=== PATIENT | female | born 1955 | race Caucasian/White ===

== ENCOUNTER → 2016-05-12 | Outpatient (CLI) | payer BC, MEDICARE ==
--- NOTE | 2016-05-13 08:51 | MM ---
Reason for exam: screening (asymptomatic). Last mammogram was performed 1 year and 11 months ago. History: Patient is postmenopausal, history of other cancer, and had first child at age 31. Family history of breast cancer in paternal grandmother. Took hormonal contraceptives for 9 years. Took estrogen for 6 months. Physical Findings: A clinical breast exam by your physician is recommended on an annual basis and results should be correlated with mammographic findings. MG 3D Screening Mammo W/Cad Bilateral CC and MLO view(s) were taken. Prior study comparison: June 02, 2014, bilateral MG screening mammo w CAD. February 16, 2012, CAD bilateral diagnostic mammogram. The breast tissue is extremely dense which could obscure a lesion on mammography. Finding: There are typically benign calcifications in the right breast. There is a chronic nodularity in the left breast. No significant changes in finding since June 02, 2014 and February 16, 2012. ASSESSMENT: Benign, BI-RAD 2 RECOMMENDATION: Routine screening mammogram of both breasts in 1 year.
== END | disposition home or self-care (01) ==
LOC: RADMAMWWP 16:42
PROVIDERS: ATTEND Family Medicine
DX: Z12.31 Encounter for screening mammogram for malignant neoplasm of breast (principal)
CPT/HCPCS: 77063; G0202

== ENCOUNTER → 2017-08-13 | Outpatient (CLI) | payer MEDICARE ==
--- NOTE | 2017-08-17 10:50 | MM ---
Reason for exam: screening (asymptomatic). Last mammogram was performed 1 year and 3 months ago. History: Patient is postmenopausal, history of other cancer, and had first child at age 31. Family history of breast cancer in paternal grandmother. Took hormonal contraceptives for 9 years. Took estrogen for 6 months. Physical Findings: A clinical breast exam by your physician is recommended on an annual basis and results should be correlated with mammographic findings. MG 3D Screening Mammo W/Cad Bilateral CC and MLO view(s) were taken. Prior study comparison: May 12, 2016, bilateral MG 3d screening mammo w/cad. June 02, 2014, bilateral MG screening mammo w CAD. The breast tissue is heterogeneously dense. This may lower the sensitivity of mammography. Stable benign calcifications. There is chronic nodularity bilaterally. There is no dominant lesion. No significant changes when compared with prior studies. ASSESSMENT: Benign, BI-RAD 2 RECOMMENDATION: Routine screening mammogram of both breasts in 1 year.
== END | disposition home or self-care (01) ==
LOC: RADMAMWWP 16:59
PROVIDERS: ATTEND Family Medicine
DX: Z12.31 Encounter for screening mammogram for malignant neoplasm of breast (principal)
CPT/HCPCS: 77063; 77067

== ENCOUNTER → 2019-02-01 | Outpatient (CLI) | payer MEDICARE ==
--- NOTE | 2019-02-03 09:48 | MM ---
Reason for exam: screening (asymptomatic). Last mammogram was performed 1 year and 6 months ago. History: Patient is postmenopausal, history of other cancer, and had first child at age 31. Family history of breast cancer in paternal grandmother. Took hormonal contraceptives for 9 years. Took estrogen for 6 months. Physical Findings: A clinical breast exam by your physician is recommended on an annual basis and results should be correlated with mammographic findings. MG 3D Screening Mammo W/Cad Bilateral CC and MLO view(s) were taken. Prior study comparison: August 13, 2017, bilateral MG 3d screening mammo w/cad. May 12, 2016, bilateral MG 3d screening mammo w/cad. The breast tissue is extremely dense which could obscure a lesion on mammography. Stable benign calcifications. There is no discrete abnormality. No significant changes when compared with prior studies. ASSESSMENT: Benign, BI-RAD 2 RECOMMENDATION: Routine screening mammogram of both breasts in 1 year.
== END | disposition home or self-care (01) ==
LOC: RADMAMWWP 15:23
PROVIDERS: ATTEND Family Medicine
DX: Z12.31 Encounter for screening mammogram for malignant neoplasm of breast (principal)
CPT/HCPCS: 77063; 77067

== ENCOUNTER → 2020-11-01 | Outpatient (CLI) | payer MEDICARE ==
--- NOTE | 2020-11-05 14:16 | MM ---
Reason for exam: screening (asymptomatic). Last mammogram was performed 1 year and 9 months ago. History: Patient is postmenopausal, history of other cancer, and had first child at age 31. Family history of breast cancer in paternal grandmother. Took hormonal contraceptives for 9 years. Took estrogen for 6 months. Physical Findings: A clinical breast exam by your physician is recommended on an annual basis and results should be correlated with mammographic findings. MG 3D Screening Mammo W/Cad Bilateral CC and MLO view(s) were taken. Prior study comparison: February 01, 2019, bilateral MG 3d screening mammo w/cad. August 13, 2017, bilateral MG 3d screening mammo w/cad. The breast tissue is heterogeneously dense. This may lower the sensitivity of mammography. No persisting abnormality on 3D images. No significant changes when compared with prior studies. ASSESSMENT: Benign, BI-RAD 2 RECOMMENDATION: Routine screening mammogram of both breasts in 1 year.
== END | disposition home or self-care (01) ==
LOC: RADMAMWWP 13:43
PROVIDERS: ATTEND Family Medicine
DX: Z12.31 Encounter for screening mammogram for malignant neoplasm of breast (principal); Z78.0 Asymptomatic menopausal state; Z85.9 Personal history of malignant neoplasm, unspecified; Z79.3 Long term (current) use of hormonal contraceptives; Z80.3 Family history of malignant neoplasm of breast
CPT/HCPCS: 77063; 77067

== ENCOUNTER 2021-02-27 03:21 | Emergency (ER) | payer MEDICARE ==
[2021-02-27 03:27] VITALS: RESP 20; TEMP 98.9
[2021-02-27] MEDS ORDERED: METOPROLOL TARTRATE 50 MG TAB PO STA (04:42)
[2021-02-27] MEDS ORDERED: MORPHINE SULFATE 4 MG/ML SYRINGE IV STA (04:43)
[2021-02-27] MEDS ORDERED: LORazepam 2 MG/ML INJ IV STA (04:43)
--- NOTE | 2021-02-27 04:57 | XR ---
EXAMINATION TYPE: XR chest 2V DATE OF EXAM: 02/27/2021 COMPARISON: NONE HISTORY: Chest pain TECHNIQUE: 2 views FINDINGS: Heart and mediastinum are normal. Lungs are clear. Diaphragm is normal. Bony thorax is inta ct. There are chest leads. IMPRESSION: Normal chest
[2021-02-27 04:59] LABS: Basophils # (A) 0.1 k/uL (0-0.2); Basophils % (A) 1 %; Eosinophils # (A) 0.4 k/uL (0-0.7); Eosinophils % (A) 4 %; HCT 45.6 % (34.0-46.0); HGB 15.4 gm/dL (11.4-16.0); Lymphocytes # (A) 2.7 k/uL (1.0-4.8); Lymphocytes % (A) 29 %; MCHC 33.8 g/dL (31.0-37.0); MCV 88.8 fL (80.0-100.0); Mean Platelet Volume 7.1; Monocytes # (A) 0.8 k/uL (0-1.0); Monocytes % (A) 9 %; Neutrophils # (A) 5.3 k/uL (1.3-7.7); Neutrophils % (A) 56 %; Platelet Count 470 k/uL (150-450); RBC 5.14 m/uL (3.80-5.40); RDW 13.5 % (11.5-15.5); WBC 9.4 k/uL (3.8-10.6)
[2021-02-27 05:14] LABS: Albumin 4.5 g/dL (3.5-5.0); Calcium 10.7 mg/dL (8.4-10.2); Magnesium 1.7 mg/dL (1.6-2.3); Potassium 4.1 mmol/L (3.5-5.1); Total Bilirubin 0.4 mg/dL (0.2-1.3); Total Protein 7.3 g/dL (6.3-8.2)
[2021-02-27 05:24] LABS: INR 0.9 (<1.2)
--- NOTE | 2021-02-27 06:07 | ED ---
Chest Pain HPI - General Chief Complaint: Chest Pain Stated Complaint: Chest Pain Time Seen by Provider: 02/27/21 04:13 Source: patient Mode of arrival: ambulatory Limitations: no limitations - Related Data Allergies Allergy/AdvReac Type Severity Reaction Status Date / Time No Known Allergies Allergy Verified 02/27/21 03:26 Review of Systems ROS Statement: Those systems with pertinent positive or pertinent negative responses have been documented in the HPI. ROS Other: All systems not noted in ROS Statement are negative. EKG Findings - EKG Comments: EKG Findings:: Possible old lateral infarct. Possible old inferior infarct. There is no previous ECG for comparison. - EKG Results: EKG: interpreted by JOSEE, sinus rhythm (Rate 92 bpm) - Blocks, [place], Hypertrophy, ST Abn: Repolarization changes or abnormalities: nonspecific abnormality, ST segment, and/or T wave Past Medical History Past Medical History: Hyperlipidemia, Hypertension History of Any Multi-Drug Resistant Organisms: None Reported Past Surgical History: Appendectomy, Section, Tubal Ligation Past Psychological History: No Psychological Hx Reported Smoking Status: Never smoker Past Alcohol Use History: Occasional Past Drug Use History: None Reported General Exam Limitations: no limitations Course Vital Signs 02/27/21 02/27/21 02/27/21 03:23 04:50 06:15 Temperature 98.9 F Pulse Rate 101 H 90 72 Respiratory 20 20 20 Rate Blood Pressure 160/105 151/92 129/96 O2 Sat by Pulse 99 99 95 Oximetry Disposition Clinical Impression: Chest pain Disposition: HOME SELF-CARE Condition: Good Instructions (If sedation given, give patient instructions): Chest Pain (ED) Is patient prescribed a controlled substance at d/c from ED?: No Referrals: Darlyn Horowitz DO [Primary Care Provider] - 1-2 days
[2021-02-27 06:16] VITALS: BP 129/96; PULSE 72
== END 2021-02-27 06:17 | disposition home or self-care (01) ==
LOC: EC 03:21
DX: R07.9 Chest pain, unspecified (principal); E78.5 Hyperlipidemia, unspecified; I10 Essential (primary) hypertension; Z72.89 Other problems related to lifestyle
CPT/HCPCS: 36415; 93005; 85379; 80053; 83735; 84484; 85025; 85610; 85730; 71046; 99285; 96374; 96375; J2060; J2270

== ENCOUNTER 2021-08-24 18:58 | Emergency (ER) | payer MEDICARE ==
[2021-08-24 19:15] VITALS: BP 150/66; PULSE 86; RESP 18; TEMP 98.1
[2021-08-24] MEDS ORDERED: CLOTRIMAZOLE 1% CREAM 30 GM TUBE TOPICAL STA (19:57)
--- NOTE | 2021-08-24 20:03 | ED ---
Skin/Abscess/FB HPI - General Chief complaint: Skin/Abscess/Foreign Body Stated complaint: L leg/abnormal spot Time Seen by Provider: 08/24/21 19:35 Source: patient Mode of arrival: ambulatory Limitations: no limitations - History of Present Illness Initial comments: 66-year-old female patient presents to the emergency department today for evaluation of skin lesion to the left anterior thigh. States the area started about a week ago was a small red spot and has grown in size. She denies any itching or pain to the area. Denies any discharge. Denies fever or chills. Denies vomiting or diarrhea. She is concerned because she had to rene a dog through a ditch that was filled with water. This started after that. - Related Data Previous Rx's Medication Instructions Recorded Clotrimazole Cream [Lotrimin Cream] 1 applic TOPICAL BID #15 gm 08/24/21 Allergies Allergy/AdvReac Type Severity Reaction Status Date / Time No Known Allergies Allergy Verified 02/27/21 03:26 Review of Systems ROS Statement: Those systems with pertinent positive or pertinent negative responses have been documented in the HPI. ROS Other: All systems not noted in ROS Statement are negative. Past Medical History Past Medical History: Hyperlipidemia, Hypertension History of Any Multi-Drug Resistant Organisms: None Reported Past Surgical History: Appendectomy, Section, Tubal Ligation Past Psychological History: No Psychological Hx Reported Smoking Status: Never smoker Past Alcohol Use History: Occasional Past Drug Use History: None Reported General Exam Limitations: no limitations General appearance: alert, in no apparent distress, other (This is a well- developed, well-nourished adult female in no acute distress) Respiratory exam: Present: normal lung sounds bilaterally. Absent: respiratory distress, wheezes, rales, rhonchi, stridor Cardiovascular Exam: Present: regular rate, normal rhythm, normal heart sounds. Absent: systolic murmur, diastolic murmur, rubs, gallop, clicks Extremities exam: Present: full ROM, normal capillary refill, other (There is patchy of scaly erythema to the left anterior thigh, there are tiny pustules surrounding.). Absent: normal inspection, tenderness, pedal edema, joint swelling, calf tenderness Course Vital Signs 08/24/21 19:13 Temperature 98.1 F Pulse Rate 86 Respiratory 18 Rate Blood Pressure 150/66 O2 Sat by Pulse 98 Oximetry Medical Decision Making - Medical Decision Making 66-year-old female patient presented for evaluation of skin lesions with left anterior thigh starting 1 week ago. Physical examination did reveal a patch of erythema with surrounding tiny pustules to the left anterior thigh. Approximately 3 cm x 3 cm. Surrounding skin is normal. Patient denies any itching or pain to the area. My attending Dr. Benitez was in to evaluate the lesion. We will treat for fungal infection with clotrimazole cream. She is instructed to follow-up with her primary care physician next week if symptoms are not improving. Return parameters were discussed in detail. She verbalizes understanding and agrees with this plan. My attending is Dr. Benitez. Disposition Clinical Impression: Fungal skin infection Disposition: HOME SELF-CARE Condition: Good Instructions (If sedation given, give patient instructions): Antifungals (On the skin) Additional Instructions: Follow-up with primary care physician if antifungal medication does not seem to be working. Return to the emergency department immediately if he develop any fever, chills, vomiting. Prescriptions: Clotrimazole Cream [Lotrimin Cream] 1 applic TOPICAL BID #15 gm Is patient prescribed a controlled substance at d/c from ED?: No Referrals: Darlyn Horowitz DO [Primary Care Provider] - 1-2 days Time of Disposition: 20:02
== END 2021-08-24 20:15 | disposition home or self-care (01) ==
LOC: EC 18:58
DX: L08.9 Local infection of the skin and subcutaneous tissue, unspecified (principal); I10 Essential (primary) hypertension; E78.5 Hyperlipidemia, unspecified

== ENCOUNTER → 2021-10-16 | Outpatient (CLI) | payer MEDICARE ==
--- NOTE | 2021-10-16 23:20 | CT ---
EXAMINATION TYPE: CT shoulder RT wo con CT DLP: 419.9 mGycm, Automated exposure control for dose reduction was used. DATE OF EXAM: 10/16/2021 7:19 PM COMPARISON: Chest radiograph 02/27/2021. CLINICAL INDICATION:Female, 66 years old with history of M25.511 RIGHT SHOULDER PAIN,M19.02 PRIMARY O STEOAR;, RIGHT SHOULDER PAIN,M19.02 PRIMARY OSTEOAR TECHNIQUE: Axial images were obtained of the right shoulder without the use of IV contrast. Addition al coronal and sagittal reformatted images and soft tissue and bone window were obtained for review. 3-D reconstruction was created on a separate workstation. FINDINGS: There is degeneration changes of the right shoulder with [id number] articulation, osteoph ytes of the glenoid and humerus and hypertrophy changes of the acromioclavicular joint. Underlying sc lerosis of the adjoining glenoid and humeral head are present. No evidence for acute fracture. No sig nificant muscle atrophy of the rotator cuff muscles. There is a moderate joint effusion present invol ving the glenohumeral joint with suspected hyperemia of the synovium. Visualized lungs are grossly unremarkable without evidence of focal consolidation, pneumothorax or p leural effusion. No suspicious pulmonary nodules. IMPRESSION: 1. 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 2. Moderate right glenohumeral joint effusion with suspected underlying synovitis.
== END | disposition home or self-care (01) ==
LOC: RADCTMAIN 18:31
PROVIDERS: ATTEND Orthopaedic Surgery Sports Medicine
DX: M19.011 Primary osteoarthritis, right shoulder (principal); M19.012 Primary osteoarthritis, left shoulder; M25.411 Effusion, right shoulder

== ENCOUNTER → 2022-01-03 | Outpatient (CLI) | payer MEDICARE ==
--- NOTE | 2022-01-06 10:21 | MM ---
Reason for Exam: Screening (asymptomatic). Last mammogram was performed 1 year(s) and 2 month(s) ago. Patient History: Menarche at age 14. First Full-Term at age 31. Late child-bearing (after 30). Postmenopausal. Estrogen for 6 months until age 53. Hormonal Contraceptives for 9 years until age 49. Paternal grandmother had breast cancer at or over age 50. Risk Values: Brooke 5 year model risk: 2.1%. NCI Lifetime model risk: 7.5%. Prior Study Comparison: 08/13/2017 Bilateral Screening Mammogram, [facility]. 02/01/2019 Bilateral Screening Mammogram, [facility]. 11/01/2020 Bilateral Screening Mammogram, [facility]. Tissue Density: The breast tissue is extremely dense which could obscure a lesion on mammography. Findings: Analyzed By CAD. In the outer lower aspect right craniocaudal view there are some linear range small rounded calcifications. In retrospect they appear to be present on prior examination. Recommend making dictation views for further characterization. Left breast appears stable. Overall Assessment: Incomplete: need additional imaging evaluation, BI-RAD 0 Management: Diagnostic Mammogram of the right breast. A negative mammogram report should not preclude additional follow up of suspicious palpable abnormalities. Patient should continue monthly self breast exam. A clinical breast exam by your physician is recommended on an annual basis and results should be correlated with mammographic findings. Electronically signed and approved by: Filemon Marrero D.O. Radiologis
== END | disposition home or self-care (01) ==
LOC: RADMAMWWP 16:22
PROVIDERS: ATTEND Family Medicine
DX: Z12.31 Encounter for screening mammogram for malignant neoplasm of breast (principal); Z78.0 Asymptomatic menopausal state; Z80.3 Family history of malignant neoplasm of breast
CPT/HCPCS: 77063; 77067

== ENCOUNTER → 2022-01-09 | Outpatient (CLI) | payer MEDICARE ==
--- NOTE | 2022-01-09 13:55 | MM ---
Reason for Exam: Additional evaluation requested from abnormal screening. Last screening mammogram was performed less than 1 month ago. Patient History: Menarche at age 14. First Full-Term at age 31. Late child-bearing (after 30). Postmenopausal. Estrogen for 6 months until age 53. Hormonal Contraceptives for 9 years until age 49. Paternal grandmother had breast cancer at or over age 50. Risk Values: Brooke 5 year model risk: 2.1%. NCI Lifetime model risk: 7.5%. Prior Study Comparison: 02/16/2012 Bilateral Diagnostic Mammogram, [facility]. 06/02/2014 Bilateral Screening Mammogram, [facility]. 08/13/2017 Bilateral Screening Mammogram, [facility]. 11/01/2020 Bilateral Screening Mammogram, [facility]. 01/03/2022 Bilateral MG 3D screening mammo w/cad, [facility]. Tissue Density: Right: The breast tissue is heterogeneously dense. This may lower the sensitivity of mammography. Findings: Analyzed By CAD. The questioned posterior lateral grouped microcalcifications are not clearly depicted on the magnification views. This may in part relate to accentuation due to C-view technique. Precautionary 6 month follow-up recommended. Overall Assessment: Probably benign, BI-RAD 3 Management: Diagnostic Mammogram of the right breast in 6 months. 1. Patient should continue monthly self breast exams. 2. A clinical breast exam by your physician is recommended on an annual basis. 3. This exam should not preclude additional follow-up of suspicious palpable abnormalities. Results were given to the patient verbally at the time of exam. Electronically signed and approved by: Juana Claudio M.D. Radiologist
== END | disposition home or self-care (01) ==
LOC: RADMAMWWP 13:00
PROVIDERS: ATTEND Family Medicine
DX: R92.8 Other abnormal and inconclusive findings on diagnostic imaging of breast (principal); Z78.0 Asymptomatic menopausal state; Z80.3 Family history of malignant neoplasm of breast
CPT/HCPCS: 77065; G0279; 77061

== ENCOUNTER → 2022-02-04 | Outpatient (CLI) | payer MEDICARE | END | disposition home or self-care (01) | LOC: LABPAT 12:05 | PROVIDERS: ATTEND Orthopaedic Surgery Sports Medicine | DX: Z01.812 Encounter for preprocedural laboratory examination (principal); Z01.818 Encounter for other preprocedural examination | CPT/HCPCS: 87070 ==

== ENCOUNTER 2022-02-06 05:45 | Day surgery (SDC) | payer MEDICARE ==
[2022-02-04 09:51] VITALS: BMI 30.7
[~2022-02-06 05:45] MED LIST: ACETAMINOPHEN TAB 500 MG TAB PO PRN; GABAPENTIN 300 MG CAP PO PRN; MELOXICAM 7.5 MG TAB PO PRN; ONDANSETRON 4 MG/2 ML VIAL IVP PRN; TRANEXAMIC ACID IN NACL,ISO-OS 1,000 MG in SALINE 1 100ML.BAG IVPB PRN
[2022-02-06] MEDS ORDERED: ONDANSETRON 4 MG/2 ML VIAL IVP ONE (05:50)
[2022-02-06] MEDS ORDERED: DEXAMETHASONE SOD PHOSPHATE 4 MG/ML 1 ML VIAL IV ONE (05:50)
[2022-02-06] MEDS ORDERED: LIDOCAINE 1% (10MG/ML) FOR IV START INTRADERMA PRN (05:50)
[2022-02-06] MEDS ORDERED: MIDAZOLAM 2 MG/2 ML VIAL IVP ONE (06:43)
[2022-02-06] MEDS: LACTATED RINGERS 1,000 ML IV SCH ×3 (06:53→17:03)
[2022-02-06] MEDS ORDERED: HYDROmorphone 0.5 MG/0.5 ML SYRINGE IVP PRN ×3 (07:00→09:26)
[2022-02-06] MEDS ORDERED: PROPOFOL 10 MG/ML 20 ML VIAL IV ONE (07:05)
[2022-02-06] MEDS ORDERED: NEOSTIGMINE 1 MG/ML 10 ML VIAL ONE (07:05)
[2022-02-06] MEDS ORDERED: MIDAZOLAM 2 MG/2 ML VIAL ONE (07:05)
[2022-02-06] MEDS ORDERED: TRANEXAMIC ACID IN NACL,ISO-OS 1,000 MG/100 ML BAG ONE (07:05)
[2022-02-06] MEDS ORDERED: LIDOCAINE 2% INJ 20 MG/ML (2 ML VIAL) ONE (07:05)
[2022-02-06] MEDS ORDERED: SUCCINYLCHOLINE CHLORIDE 200 MG/10 ML VIAL IV ONE (07:05)
[2022-02-06] MEDS ORDERED: ePHEDrine 50 MG/ML 1 ML VIAL ONE (07:05)
[2022-02-06] MEDS ORDERED: ROPIVACAINE 5 MG/ML 30 ML VIAL ONE (07:05)
[2022-02-06] MEDS ORDERED: GLYCOPYRROLATE 0.2 MG/ML 2 ML VIAL ONE (07:05)
[2022-02-06] MEDS ORDERED: ROCURONIUM 10 MG/ML (5 ML VIAL) IV ONE (07:05)
[2022-02-06] MEDS ORDERED: DEXAMETHASONE SOD PHOSPHATE 4 MG/ML 1 ML VIAL ONE (07:05)
[2022-02-06] MEDS ORDERED: fentaNYL (PF) 50 MCG/ML 2 ML AMP ONE (07:05)
[2022-02-06] MEDS ORDERED: VANCOMYCIN 1,000 MG VIAL MISCELLANE ONE (07:41)
[2022-02-06] MEDS ORDERED: ceFAZolin 1,000 MG in SODIUM CHLORIDE 0.9% 1,000 ML IRRIGATION ONE (07:42)
[2022-02-06] MEDS ORDERED: LACTATED RINGERS 1,000 ML IV ONE (08:58)
[2022-02-06] MEDS ORDERED: PROCHLORPERAZINE SUPPOSITORY 25 MG SUPP RECTAL PRN (09:26)
[2022-02-06] MEDS ORDERED: SENNOSIDES-DOCUSATE SODIUM 1 EACH TAB PO PRN (09:26)
[2022-02-06] MEDS ORDERED: diphenhydrAMINE 25 MG CAP PO PRN (09:26)
[2022-02-06] MEDS ORDERED: ONDANSETRON 4 MG/2 ML VIAL IVP PRN (09:26)
[2022-02-06] MEDS ORDERED: METOCLOPRAMIDE 5 MG/ML 2 ML VIAL IVP PRN (09:26)
[2022-02-06] MEDS ORDERED: HYDROcodone/APAP 7.5-325MG 1 EACH TAB PO PRN (09:29)
[2022-02-06] MEDS ORDERED: ROPIVACAINE 5 MG/ML 30 ML VIAL MISCELLANE ONE (09:58)
[2022-02-06] MEDS: MEPERIDINE 50 MG/ML SYRINGE IVP ONE ×2 (10:29→11:03)
--- NOTE | 2022-02-06 11:57 | XR ---
EXAMINATION TYPE: XR shoulder limited RT DATE OF EXAM: 02/06/2022 COMPARISON: None HISTORY: Post right shoulder prosthesis TECHNIQUE: AP right shoulder FINDINGS: Right shoulder prosthesis is present. No acute fractures are evident. Acromioclavicular linden ction appears normal. IMPRESSION: 1. No acute fracture post right shoulder replacement
--- NOTE | 2022-02-06 12:53 | OP ---
OPERATIVE REPORT PREOPERATIVE DIAGNOSIS: Right shoulder osteoarthrosis. POSTOPERATIVE DIAGNOSIS: Right shoulder osteoarthrosis. OPERATION: Right total shoulder arthroplasty. ANESTHESIA: General endotracheal. ESTIMATED BLOOD LOSS: 100 mL. DRAINS: None. COMPLICATIONS: None apparent. DISPOSITION: Postanesthesia care unit. INDICATIONS: Renetta is a very pleasant 66-year-old female with longstanding history of right shoulder pain. Workup including x-rays and a CT scan revealed advanced osteoarthrosis of the right shoulder. At this point, it is felt that she has failed conservative management and would like to proceed with operative intervention. The risks of procedure were discussed with her in detail. These risks include, but were not limited to risk of infection, nerve damage, bleeding, pain, instability in the shoulder, loosening of the implants, and deep infection. There is also a risk of deep vein thrombosis, which could lead to fatal pulmonary embolism. The patient understood these risks. All of her questions were answered to her satisfaction. An appropriate informed consent was obtained. DESCRIPTION OF THE PROCEDURE: The patient was identified in preoperative holding area. Surgical site was marked by both the patient and myself. She was given 2 grams of Ancef IV for prophylactic purposes. She was then transported to the operative suite. She was placed supine on the operating room table. General anesthetic was then administered and dosed per the Anesthesia Department without apparent complication. Examination under anesthesia was then performed to the right shoulder. She had elevation to 140 degrees, external rotation to side was to 40 degrees. The patient was then placed into the beach chair position, well-padded in preparation for surgery. Great care was taken to ensure that her cervical spine was in neutral alignment, well-padded and maintained that way throughout the operative procedure. Great care was also taken to ensure that her legs were appropriately padded as well. The patient's right upper extremity was then prepped and draped in usual sterile fashion. Standard surgical pause was undertaken to ensure that we were operating the correct site and that appropriate preoperative antibiotics had been given. All staff in room were in agreement and we proceeded. The acromion AC joint, clavicle, and coracoid were marked with a surgical pen. A planned incision starting at the level of the clavicle and extending distally over the deltopectoral interval approximately 1 cm lateral to the coracoid was marked with a surgical pen. The incision was then made with a 10 blade scalpel. Dissection was carried down sharply to the deltoid fascia. The rotator interval was then identified at the level of the clavicle. A small band retractor was then placed onto the proximal deltoid. I then released the deltoid fascia on the lateral aspect of the cephalic vein. The cephalic vein was preserved and left in its bed medially. The cephalic vein was protected throughout the entire case. I then identified the clavipectoral fascia. This was incised proximally to the level of the coracoacromial ligament. The coracoacromial ligament was left intact. I then used my finger to spread the interval between the conjoint tendon and the subscapularis. I felt for the axillary nerve, which was readily palpable. I then cleared the subacromial and subdeltoid spaces of bursal and scar tissue. I then utilized a Casillas retractor to hold the deltoid and expose the humeral head. I then proceeded to release the subscapularis in the anterior inferior shoulder capsule. The rotator cuff was inspected. The rotator cuff was found to be intact. The rotator interval was then identified. The course of the biceps tendon was also identified. I then released the rotator interval. This was released at the base of the coracoid and then out laterally. The subscapularis and the capsule were then released intratendinously. The subscapularis and capsule were released and extended distally in a lazy-S fashion approximately 1 cm medial to the biceps tendon. I then continued to release the capsule along the inferior neck in a vertical fashion to approximately the 6 o'clock position. Great care was taken to ensure the capsule was always visualized as it was released as to avoid injuring the axillary nerve. I then brought a Castillo slide forming machine tender with the arm externally rotated and abducted. I continued to release the capsule inferomedially to the 4 o'clock position. The inferior osteophytes were then removed as well. This was done with a rongeur. I then proceeded with preparation of the humerus. I removed all the goat's wallis osteophytes. I then removed the subchondral plate from the superior aspect of the humeral head utilizing a large rongeur. I then utilized a starting reamer to gain access to the humeral canal. This was approximately 1 cm medial to the rotator cuff insertion and 1 cm posterior to the bicipital groove. I then prepared the humeral canal with hand reaming. I started with a 6 mm reamer and incrementally increased until firm resistance was encountered at 14 mm. The reamer handle was then left in place. I then utilized a humeral resection guide set at 30 degrees of retrotorsion. The cutting block was then set 1 to 2 mm above the insertion of the rotator cuff. I then proceeded to osteotomize humeral head with an oscillating saw. I removed the resection guide and then completed the osteotomy. I then proceeded with trial stem placement. I then incrementally broached up to a size 14 broach. This was done in 30 degrees of retrotorsion. The 14 mm broach was then left in place. I then proceeded with trial reduction. I started with a 42 x 18 x 46 head. This seemed to fit very nicely. The head fit opposite to the glenoid. The rotator cuff was not tented. Internal rotation was to 90 degrees, external elevation was to 150 degrees and translation was 1/2 of the head in neutral rotation and 1/4 of the head inferiorly in 15 to 20 degrees of abduction. I then removed the trial head. The stem was then left in place. I then proceeded with exposure of the glenoid. At this point, I did release the biceps tendon. This was tenotomized at the level of the superior labrum. A bone hook was then used to pull the humerus out laterally. I then inspected the joint for any loose bodies. The condition of the cuff was again inspected. The rotator cuff was in excellent condition. A Bhattman retractor was then placed on the posterior glenoid rim. The arm was placed in approximately 80 degrees of abduction and in slight flexion on a Castillo stand. I then proceeded to remove the hypertrophic labrum to definitively identify the actual glenoid. I then selected the size of the glenoid. A size 3 glenoid fit very nicely. I then utilized a starting drill to make the centering hole. I then proceeded to ream the glenoid fossa. This was done with a size 3 reamer. The reaming was then taken down to paprika sign. It had a nice bleeding surface. There was a tiny bit of posterior inferior glenoid loss, and I preferentially took off slightly more anterior glenoid with the reaming. I then proceeded to place the glenoid drill holes. The peripheral drill hole was then placed and the center hole was drilled as well. I then placed a trial size 3 glenoid and it fit very nicely and flush onto the glenoid. I then proceeded with cementing. The wound was water picked utilizing an antibiotic saline solution via pulse lavage. The drill holes were then packed with Ray-Agusto sponges. The cement was then mixed on the back table by the web marketing assistant. The peripheral drill holes were then packed with cement utilizing a 20 mL syringe. A small amount of cement was also placed on the posterior aspect of the real glenoid component. I then impacted the real glenoid component into place. This was a Richar size 3 pegged glenoid component with a Regenerex central peg. Excess cement was removed utilizing a Buffalo elevator. Pressure was held on the glenoid component until the cement had hardened. I then removed the Bhattman retractor. I then proceeded with humeral component trial reduction with the actual glenoid. The 42 x 18 x 46 head was then placed back onto the stem. Again, this was taken through trial. Again, the head set opposite to the glenoid. The rotator cuff was not tented. Elevation to 150 degrees, internal rotation was to 90 degrees and translation was 1/2 of the head in neutral rotation and 1/4 of the head in 15 to 20 degrees of abduction. I then had the accounting representative to open a 42 x 18 x 46 real head and a size 14 mini stem. The stem was then impacted in the canal and 30 degrees of retrotorsion. The Shipley taper was dried and the real head was then impacted onto the stem offset to provide good coverage of the proximal humerus. The shoulder was then reduced. I then proceeded with closure. Again, the wound was thoroughly irrigated with sterile saline solution with antibiotic added. The rotator interval was closed tightly with 0 Vicryl interrupted suture. The subscapularis and anterior inferior capsule were closed with #2 FiberWire interrupted suture. Approximately 500 mg of vancomycin powder was then placed deep into the wound. The deltopectoral interval was then closed with 0 Vicryl interrupted suture. The subcutaneous tissue was again thoroughly irrigated with sterile saline solution with antibiotic added. The remaining 500 mg of vancomycin powder was placed subcutaneously. The subcutaneous tissue was then closed with 2-0 Vicryl interrupted suture and the skin was closed with a running 3-0 Quill suture. Dermabond was applied to the incision. Sterile compressive dressing was applied. The patient's right upper extremity was placed into a shoulder immobilizer. All sponge and needle counts were deemed correct prior to closure. The patient tolerated the procedure without apparent complication. It was noted that prior to closure, I did feel for the axillary nerve, which was readily palpable and uninjured. The patient was transferred to recovery room in stable condition. MORGAN / PAULN: [id number] /
--- NOTE | 2022-02-06 19:35 | P.ANPRN ---
Procedure Note - Anesthesia - Nerve Block Performed Right Interscalene Single Time Out Performed: Yes Date of Procedure: 02/06/22 Procedure Start Time: :42 Procedure Stop Time: :46 Indication: Requested by Surgeon Sedation Type: Sedate with meaningful contact maintained Preparation: Sterile Prep Position: Supine Needle Types: Pajunk Needle Gauge: 21 Ultrasound used to visualize needle placement: Yes Ultrasound used to observe medication spread: Yes Blood Aspirated: No Pain Paresthesia on Injection Noted: No Resistance on Injection: Normal Image Stored and Saved: Yes Events: Uneventful and Well Tolerated (ropi .5% 20cc plus dexamethasone 4mg)
[2022-02-07] MEDS: HYDROcodone/APAP 7.5-325MG 1 EACH TAB PO PRN ×2 (01:27→06:38)
[2022-02-07] MEDS: HYDROmorphone 0.5 MG/0.5 ML SYRINGE IVP PRN ×4 (04:16→13:37)
[2022-02-07] MEDS ORDERED: LORazepam 0.5 MG TAB PO PRN (05:06)
[2022-02-07] MEDS: LACTATED RINGERS 1,000 ML IV SCH ×2 (06:41→07:35)
[2022-02-07 07:53] VITALS: BP 143/80; PULSE 71; RESP 15; TEMP 98
[2022-02-07 08:41] LABS: HCT 34.8 % (37.2-46.3); HGB 11.4 g/dL (12.0-15.0); MCH 29.9 pg (27.0-32.0); MCHC 32.8 g/dL (32.0-37.0); MCV 91.3 fL (80.0-97.0); Mean Platelet Volume 9.3 fL (9.5-12.2); NRBC Per 100 WBC 0 /100 WBCS (0.0-0.0); Platelet Count 310 X 10*3/uL (140-440); RBC 3.81 X 10*6/uL (4.10-5.20); RDW 13.6 % (11.5-14.5); WBC 11.42 X 10*3/uL (4.50-10.00)
[2022-02-07] MEDS ORDERED: FLUoxetine HCL 20 MG CAP PO SCH (09:00)
[2022-02-07] MEDS ORDERED: METOPROLOL TARTRATE 25 MG TAB PO SCH ×2 (09:00→21:00)
[2022-02-07] MEDS ORDERED: NON FORMULARY DRUG (Biotin [Biotin Disolve] 10,000 MCG Tablet) PO SCH (09:00)
[2022-02-07 09:31] LABS: Basophils # (M) 0 X 10*3/uL (0.00-0.10); Eosinophils # (M) 0 X 10*3/uL (0.04-0.35); Lymphocytes # (M) 1.14 X 10*3/uL (0.90-5.00); Monocytes # (M) 0.34 X 10*3/uL (0.20-1.00); Neutrophils # (M) 9.94 X 10*3/uL (2.00-8.90); Neutrophils % (M) 87 %; RBC Morphology NORMAL
[2022-02-07] MEDS ORDERED: PANTOPRAZOLE 40 MG/10 ML VIAL IVP SCH (11:00)
--- NOTE | 2022-02-07 12:59 | P.DS ---
Providers Expected date of discharge: 02/07/22 Attending physician: Bryant Mcgovern Consults: 02/06/22 09:30 Consult Physician Routine Consulting Provider: Wolfgang Driver Consult Reason/Comments: post op medical management Do you want consulting provider notified?: Yes Primary care physician: Darlyn Horowitz Hospital Course: Patient was admitted to the OR on 02/06/22 to undergo a right total shoulder arthroplasty. She had failed conservative measures as an outpatient and desired to proceed with elective surgery after given informed consent. She underwent the above procedure which she tolerated well without complication. Postoperative hospital course has remained without complication. On day of discharge she is afebrile, vital signs stable, labs within acceptable ranges, tolerating by mouth meds and diet, voiding without difficulty, positive flatus, denies abdominal pain or calf pain, pain is controlled on oral pain medication and has no new complaints. Wound is benign, neurovascular status is intact, calf is soft and nontender, abdomen soft and nontender. Review of systems is negative for numbness, tingling, fever, chills, chest pain, shortness of breath, nausea, vomiting, dizziness, headaches, slurred speech or other. Procedures: Right TSA Patient Condition at Discharge: Good Plan - Discharge Summary Discharge Rx Participant: Yes New Discharge Prescriptions: New Docusate [Colace] 100 mg PO BID #60 capsule Doxycycline Hyclate 100 mg PO BID #10 tab oxyCODONE-APAP 7.5-325MG [Percocet 7.5-325 mg] 1 tab PO Q4HR PRN #42 tab PRN Reason: Pain Ondansetron [Zofran] 4 mg PO Q8HR PRN #21 tab PRN Reason: Nausea No Action Multivitamins, Thera [Multivitamin (formulary)] 1 tab PO DAILY Biotin [Biotin Disolve] 10,000 mcg PO DAILY Metoprolol Tartrate [Lopressor] 25 mg PO HS FLUoxetine HCL [PROzac] 60 mg PO DAILY Aspirin/Acetaminophen/Caffeine [Excedrin Extra Strength Caplet] 1 each PO DIRECTED PRN PRN Reason: Pain Fish Oil/Dha/Epa [Fish Oil 1,200 mg Fish Oil] 1 each PO DIRECTED Atorvastatin [Lipitor] 40 mg PO HS lamoTRIgine [Lamictal] 200 mg PO HS LORazepam [Ativan] 0.5 mg PO BID PRN PRN Reason: Anxiety Ibuprofen [Motrin Ib] 600 mg PO DIRECTED PRN PRN Reason: Pain Discharge Medication List Aspirin/Acetaminophen/Caffeine [Excedrin Extra Strength Caplet] 1 each PO DIRECTED PRN 02/04/22 [History] Atorvastatin [Lipitor] 40 mg PO HS 02/04/22 [History] Biotin [Biotin Disolve] 10,000 mcg PO DAILY 02/04/22 [History] FLUoxetine HCL [PROzac] 60 mg PO DAILY 02/04/22 [History] Fish Oil/Dha/Epa [Fish Oil 1,200 mg Fish Oil] 1 each PO DIRECTED 02/04/22 [History] Ibuprofen [Motrin Ib] 600 mg PO DIRECTED PRN 02/04/22 [History] LORazepam [Ativan] 0.5 mg PO BID PRN 02/04/22 [History] Metoprolol Tartrate [Lopressor] 25 mg PO HS 02/04/22 [History] Multivitamins, Thera [Multivitamin (formulary)] 1 tab PO DAILY 02/04/22 [History] lamoTRIgine [Lamictal] 200 mg PO HS 02/04/22 [History] Docusate [Colace] 100 mg PO BID #60 capsule 02/06/22 [Rx] Doxycycline Hyclate 100 mg PO BID #10 tab 02/06/22 [Rx] Ondansetron [Zofran] 4 mg PO Q8HR PRN #21 tab 02/06/22 [Rx] oxyCODONE-APAP 7.5-325MG [Percocet 7.5-325 mg] 1 tab PO Q4HR PRN #42 tab 02/07/22 [Rx] Follow up Appointment(s)/Referral(s): Wolfgang Driver MD [STAFF PHYSICIAN] - 02/18/22 9:45 am (With Maye at [facility]) Bryant Mcgovern MD [STAFF PHYSICIAN] - 02/14/22 2:00 pm Patient Instructions/Handouts: Joint Replacement Surgery (DC), Shoulder Arthroplasty (DC) Activity/Diet/Wound Care/Special Instructions: keep wound clean and dry take meds as directed maintain sling nonweightbearing right upper extremity F/U in office may shower in 3 days if no bleeding Discharge Disposition: HOME SELF-CARE
--- NOTE | 2022-02-07 13:04 | P.CONS ---
History of Present Illness - Reason for Consult Consult date: 02/07/22 Medical management hypertension, hyperlipidemia Requesting physician: Bryant Mcgovern - Chief Complaint Right shoulder OA, status post surgical repair - History of Present Illness This is a 66-year-old female with past medical history of osteoarthritis, hypertension, hyperlipidemia, prior nicotine dependence, and multiple other medical issues status post right shoulder arthroplasty. Tolerated procedure well. Reports rough night, had increased pain after block wore off, did not sleep well. Reports minor sore throat. Denies chest pain, palpitations or shortness of breath. Positive diet intake with no nausea vomiting or diarrhea. Passing flatus, no bowel movement. Denies abdominal pain. Review of Systems Constitutional: Denied any fatigue denied any fever. Cardio vascular: denied any chest pain, palpitations Gastrointestinal denied any nausea vomiting Pulmonary: Denied any shortness of breath cough Neurologic denied any new focal deficits ROS Statement: Those systems with pertinent positive or pertinent negative responses have been documented in the HPI. ROS Other: All systems not noted in ROS Statement are negative. Past Medical History Past Medical History: Hyperlipidemia, Hypertension History of Any Multi-Drug Resistant Organisms: None Reported Past Surgical History: Appendectomy, Section, Tubal Ligation Past Anesthesia/Blood Transfusion Reactions: Motion Sickness Additional Past Anesthesia/Blood Transfusion Reaction / Comm: CBD oil occ. Past Psychological History: No Psychological Hx Reported Smoking Status: Never smoker Past Alcohol Use History: Occasional Additional Past Alcohol Use History / Comment(s): quit smoking 38 yrs ago, smoked for 10 yrs Past Drug Use History: None Reported - Past Family History Daughter(s) Family Medical History: Cancer Medications and Allergies Home Medications Medication Instructions Recorded Confirmed Type Aspirin/Acetaminophen/Caffeine 1 each PO DIRECTED PRN 02/04/22 02/04/22 History [Excedrin Extra Strength Caplet] Atorvastatin [Lipitor] 40 mg PO HS 02/04/22 02/04/22 History Biotin [Biotin Disolve] 10,000 mcg PO DAILY 02/04/22 02/04/22 History FLUoxetine HCL [PROzac] 60 mg PO DAILY 02/04/22 02/04/22 History Fish Oil/Dha/Epa [Fish Oil 1,200 1 each PO DIRECTED 02/04/22 02/04/22 History mg Fish Oil] Ibuprofen [Motrin Ib] 600 mg PO DIRECTED PRN 02/04/22 02/04/22 History LORazepam [Ativan] 0.5 mg PO BID PRN 02/04/22 02/04/22 History Metoprolol Tartrate [Lopressor] 25 mg PO HS 02/04/22 02/04/22 History Multivitamins, Thera [Multivitamin 1 tab PO DAILY 02/04/22 02/04/22 History (formulary)] lamoTRIgine [Lamictal] 200 mg PO HS 02/04/22 02/04/22 History Docusate [Colace] 100 mg PO BID #60 capsule 02/06/22 Rx Doxycycline Hyclate 100 mg PO BID #10 tab 02/06/22 Rx Ondansetron [Zofran] 4 mg PO Q8HR PRN #21 tab 02/06/22 Rx oxyCODONE-APAP 7.5-325MG [Percocet 1 tab PO Q4HR PRN #42 tab 02/07/22 Rx 7.5-325 mg] Allergies Allergy/AdvReac Type Severity Reaction Status Date / Time No Known Allergies Allergy Verified 02/06/22 06:03 Physical Exam Vitals: Vital Signs Temp Pulse Resp BP Pulse Ox 02/07/22 07:51 98.0 F 71 15 143/80 90 L 02/07/22 01:32 98.2 F 82 17 126/78 90 L 02/06/22 19:57 98.5 F 94 17 112/71 92 L 02/06/22 12:56 98.1 F 81 16 136/67 95 02/06/22 12:15 78 16 142/63 93 L 02/06/22 11:45 73 16 133/62 93 L 02/06/22 11:15 76 16 132/63 93 L 02/06/22 11:00 83 16 133/59 93 L Intake and Output 02/06/22 02/07/22 02/07/22 22:59 06:59 14:59 Other: # Voids 1 2 PHYSICAL EXAM: VITAL SIGNS: As above GENERAL: Sitting up in bed, no acute distress HEENT: Conjunctivae normal. eyes normal. MMM. NECK: Supple, No JVD. No thyroid enlargement. No LNs CARDIOVASCULAR: S1, S2 regular..No murmur RESPIRATION: Breath sounds diminished in the bases. No rhonchi or crackles. No bronchial breathing. ABDOMEN: Soft, nontender . No guarding. no masses palpable. No ascites, No hepatosplenomegaly.Bowel sounds heard. Extremities: Right shoulder dressing clean dry and intact, minimal edema, positive radial pulse. PSYCHIATRY: Alert and oriented X3, mood and affect normal. NERVOUS SYSTEM: Cranial N 2-12 grossly normal. Moves all 4 limbs. Diffuse weakness No focal deficits. Strength and sensation grossly intact. Skin: Warm and dry, no rash Results CBC & Chem 7: 02/07/22 06:22 Labs: Abnormal Lab Results - Last 24 Hours (Table) 02/07/22 Range/Units 06:22 WBC 11.42 H (4.50-10.00) X 10*3/uL RBC 3.81 L (4.10-5.20) X 10*6/uL Hgb 11.4 L (12.0-15.0) g/dL Hct 34.8 L (37.2-46.3) % MPV 9.3 L (9.5-12.2) fL Neutrophils # (Manual) 9.94 H (2.00-8.90) X 10*3/uL Eosinophils # (Manual) 0 L (0.04-0.35) X 10*3/uL Assessment and Plan Assessment: Advanced right shoulder osteoarthrosis, failed conservative treatment, status post right total shoulder arthroplasty Postoperative atelectasis, expected outcome Hypertension Hyperlipidemia Prior nicotine dependence Plan: Continue on current medication regime ,monitoring and symptomatic treatment. Aggressive pulmonary toileting with incentive spirometer ordered. PPI added to med regimen for GI prophylaxis .DVT prophylaxis and pain management as per primary. Home medications reviewed and resumed accordingly. Thank you for the consult. Follow-up with PCP in 1 week. The impression and plan of care has been dictated as directed. : I performed a history and examination of this patient, discussed the same with the dictator. I agree with the dictator's note ,documented as a scribe. Any additional findings or plans will be noted.
[2022-02-07] MEDS ORDERED: ATORVASTATIN 40 MG TAB PO SCH (21:00)
[2022-02-07] MEDS ORDERED: lamoTRIgine 100 MG TAB PO SCH ×2 (21:00)
== END 2022-02-07 13:50 | disposition home or self-care (01) ==
LOC: OR 05:45 → 4SSUR 12:18 → OR 02-07 13:50
PROVIDERS: ATTEND Orthopaedic Surgery Sports Medicine
DX: M19.011 Primary osteoarthritis, right shoulder (principal); G89.18 Other acute postprocedural pain; I10 Essential (primary) hypertension; F32.A Depression, unspecified; F41.9 Anxiety disorder, unspecified; E78.5 Hyperlipidemia, unspecified
CPT/HCPCS: 64415; 76942; 85025; 88300; 73020; 23472; C1776; C1713; J2250; J3370; J0330; J1100; J2710; J2175; J0690 ×2; J2405; J3010; J2795; J2704; J1170 ×2; J2001

== ENCOUNTER → 2022-10-28 | Outpatient (CLI) | payer MEDICARE ==
--- NOTE | 2022-10-28 12:08 | MM ---
Reason for Exam: Follow-up at short interval from prior study. Last screening mammogram was performed 10 month(s) ago. Patient History: Menarche at age 14. First Full-Term at age 31. Late child-bearing (after 30). Postmenopausal. Estrogen for 6 months until age 53. Hormonal Contraceptives for 9 years until age 49. Paternal grandmother had breast cancer at or over age 50. Risk Values: Brooke 5 year model risk: 2.1%. NCI Lifetime model risk: 7.2%. Prior Study Comparison: 05/18/1993 Screening Mammogram, Unknown. 03/14/1996 Screening Mammogram, Unknown. 05/22/2005 Right Diagnostic Mammogram, [facility]. 01/14/2006 Bilateral Diagnostic Mammogram, [facility]. 01/14/2006 Right Diagnostic Ultrasound, [facility]. 07/11/2009 Bilateral Diagnostic Mammogram, [facility]. 11/12/2010 Bilateral Diagnostic Mammogram, [facility]. 02/16/2012 Bilateral Diagnostic Mammogram, [facility]. 06/02/2014 Bilateral Screening Mammogram, [facility]. 05/12/2016 Bilateral Screening Mammogram, [facility]. 08/13/2017 Bilateral Screening Mammogram, [facility]. 02/01/2019 Bilateral Screening Mammogram, [facility]. 11/01/2020 Bilateral Screening Mammogram, [facility]. 01/03/2022 Bilateral MG 3D screening mammo w/cad, [facility]. 01/09/2022 Right MG 3D work up w/cad RT, [facility]. Tissue Density: The breast tissue is heterogeneously dense. This may lower the sensitivity of mammography. Findings: Analyzed By CAD. Dense tissues along the superior aspect of the left breast become more defined on the true lateral view but less defined on the spot 3-D CC view. Further ultrasound evaluation is recommended. No persisting abnormality seen on the right side. Overall Assessment: Incomplete: need additional imaging evaluation, BI-RAD 0 Management: Diagnostic Breast Ultrasound of the left breast. Superior half. Electronically signed and approved by: Juana Claudio M.D. Radiologist
--- NOTE | 2022-10-28 12:26 | USB ---
Reason for Exam: Additional evaluation requested from prior study. Patient History: Menarche at age 14. First Full-Term at age 31. Late child-bearing (after 30). Postmenopausal. Estrogen for 6 months until age 53. Hormonal Contraceptives for 9 years until age 49. Paternal grandmother had breast cancer at or over age 50. Risk Values: Brooke 5 year model risk: 2.1%. NCI Lifetime model risk: 7.2%. Technique: Method: Targeted. Prior Study Comparison: 11/01/2020 Bilateral Screening Mammogram, [facility]. 01/03/2022 Bilateral MG 3D screening mammo w/cad, [facility]. 01/09/2022 Right MG 3D work up w/cad RT, [facility]. Findings: The upper section of the breast of the left breast, the axilla of the left breast and the retroareolar of the left breast were scanned. Targeted ultrasound left breast superior half 9:00 to 3:00 including the subareolar region and axilla. Very dense tissues are present throughout. No axillary lymphadenopathy. No solid or cystic lesion seen. Precautionary six-month follow-up mammogram recommended. Overall Assessment: Probably benign, BI-RAD 3 Management: Diagnostic Mammogram of the left breast in 6 months. A clinical breast exam by your physician is recommended on an annual basis and results should be correlated with mammographic findings. This exam should not preclude additional follow-up of suspicious palpable abnormalities. Results were given to the patient verbally at the time of exam. Electronically signed and approved by: Juana Claudio M.D. Radiologist
== END | disposition home or self-care (01) ==
LOC: RADMAMWWP 10:52
PROVIDERS: ATTEND Family Medicine
DX: R92.8 Other abnormal and inconclusive findings on diagnostic imaging of breast (principal); Z78.0 Asymptomatic menopausal state; Z80.3 Family history of malignant neoplasm of breast
CPT/HCPCS: 77066; 76642; G0279; 77062

== ENCOUNTER → 2023-06-18 | Outpatient (CLI) | payer MEDICARE ==
--- NOTE | 2023-06-18 14:43 | MM ---
Reason for Exam: Follow-up at short interval from prior study. Last screening mammogram was performed 7 month(s) ago. Patient History: Menarche at age 14. First Full-Term at age 31. Late child-bearing (after 30). Postmenopausal. Estrogen for 6 months until age 53. Hormonal Contraceptives for 9 years until age 49. Paternal grandmother had breast cancer at or over age 50. Risk Values: Brooke 5 year model risk: 2.1%. NCI Lifetime model risk: 7.2%. Prior Study Comparison: 01/03/2022 Bilateral MG 3D screening mammo w/cad, [facility]. 01/09/2022 Right MG 3D work up w/cad RT, [facility]. 10/28/2022 Bilateral MG 3D diag mammo w/cad VIKAS, [facility]. Tissue Density: Left: The breasts are extremely dense, which lowers the sensitivity of mammography. Findings: Analyzed By CAD. Persistent dense fibroglandular tissue in the superior aspect of the left breast. No new suspicious masses, calcifications or distortions. Overall Assessment: Benign, BI-RAD 2 Management: Screening Mammogram of both breasts in 1 year. Results were given to the patient verbally at the time of exam. Patient should continue monthly self-breast exams. A clinical breast exam by your physician is recommended on an annual basis. This exam should not preclude additional follow-up of suspicious palpable abnormalities. Note on Brooke scores and lifetime risk: 1. A Brooke score greater than 3% is considered moderate risk. If this is the case, consider specialist referral to assess eligibility for a risk reducing agent. 2. If overall lifetime risk for the development of breast cancer is 20% or higher, the patient may qualify for future screening with alternating mammogram and breast MRI. Electronically signed and approved by: Benji Madison DO
== END | disposition home or self-care (01) ==
LOC: RADMAMWWP 13:50
PROVIDERS: ATTEND Family Medicine
DX: R92.342 Mammographic extreme density, left breast (principal); Z80.3 Family history of malignant neoplasm of breast; Z78.0 Asymptomatic menopausal state
CPT/HCPCS: 77065; G0279; 77061

== ENCOUNTER → 2023-11-24 | Outpatient (CLI) | payer MEDICARE ==
[2023-11-24 16:18] LABS: INR 0.9 (<1.2); Partial Thromboplastin Time 22.8 sec (22.0-30.0); Prothrombin Time 10.3 sec (10.0-12.5)
[2023-11-24 18:20] LABS: HCT 40.1 % (37.2-46.3); HGB 13.3 g/dL (12.0-15.0); MCH 29.9 pg (27.0-32.0); MCHC 33.2 g/dL (32.0-37.0); MCV 90.1 FL (80.0-97.0); Mean Platelet Volume 8.9 FL (9.5-12.2); NRBC Per 100 WBC 0 X 10*3/uL (0.00-0.01); Platelet Count 387 X 10*3/uL (140-440); RBC 4.45 X 10*6/uL (4.10-5.20); RDW 13.4 % (11.5-14.5); WBC 8.53 X 10*3/uL (4.50-10.00)
[2023-11-24 22:38] LABS: ALT 34 U/L (8-44); AST 28 U/L (13-35); Albumin 4.2 g/dL (3.8-4.9); Alkaline Phosphatase 79 U/L (41-126); BUN/Creat Ratio 17.57 Ratio (12.00-20.00); Blood Urea Nitrogen 12.3 mg/dL (9.0-27.0); Calcium 9.7 mg/dL (8.7-10.3); Carbon Dioxide 21.1 mmol/L (21.6-31.8); Chloride 102 mmol/L (96-109); Globulin 2.1 g/dL (1.6-3.3); Glucose 96 mg/dL (70-110); Potassium 4.4 mmol/L (3.5-5.5); Sodium 138 mmol/L (135-145); Total Bilirubin 0.4 mg/dL (0.3-1.2); Total Protein 6.3 g/dL (6.2-8.2)
== END ==
LOC: LABWHC1 15:16
PROVIDERS: ATTEND Orthopaedic Surgery Sports Medicine
DX: Z01.818 Encounter for other preprocedural examination (principal)
CPT/HCPCS: 36415; 80053; 85027; 85610; 85730; 87070

== ENCOUNTER → 2023-11-24 | Outpatient (CLI) | payer MEDICARE ==
--- NOTE | 2023-11-24 21:24 | CT ---
EXAMINATION TYPE: CT shoulder LT wo con DATE OF EXAM: 11/24/2023 COMPARISON: None HISTORY: left shoulder pain CT DLP: 534 mGycm Automated exposure control for dose reduction was used. Contrast: None Technique: Axial images 8mm sections. Destructive images and sagittal planes. FINDINGS: There is loss of the glenohumeral joint space. Findings could be compatible with moderate osteoarthri tic degenerative change. There is a large joint effusion. This has extension into the left axilla. Fluid appears to surround t he expected long head of the biceps tendon in the region of the sheath. There are minimal acromioclavicular junction spurring superiorly may be present. Humeral head and in ferior glenoid spurring is noted. No acute fractures are identified. Acromial humeral joint space appears preserved. There is some hyperostosis at the greater tuberosity. IMPRESSION: 1. MODERATELY ADVANCED OSTEOARTHRITIC DEGENERATIVE CHANGES GLENOHUMERAL JUNCTION. 2. LARGE JOINT EFFUSION WHICH MAY HAVE SOME EXTENSION INTO THE LEFT AXILLARY REGION.
== END | disposition home or self-care (01) ==
LOC: RADCTMAIN 15:51
PROVIDERS: ATTEND Orthopaedic Surgery Sports Medicine
DX: M19.012 Primary osteoarthritis, left shoulder (principal); M25.412 Effusion, left shoulder

== ENCOUNTER 2023-12-10 08:04 | Observation (INO) | payer MEDICARE ==
[~2023-12-10 08:04] MED LIST changes: -ACETAMINOPHEN TAB 500 MG TAB PO PRN; -GABAPENTIN 300 MG CAP PO PRN; +HYDROmorphone 0.5 MG/0.5 ML SYRINGE IVP PRN; +LIDOCAINE 1% (10MG/ML) FOR IV START INTRADERMA PRN; -MELOXICAM 7.5 MG TAB PO PRN; -ONDANSETRON 4 MG/2 ML VIAL IVP PRN; +TRANEXAMIC 1,000 MG/100ML-NACL 1,000 MG in SALINE 1 100ML.BAG IVPB PRN; -TRANEXAMIC ACID IN NACL,ISO-OS 1,000 MG in SALINE 1 100ML.BAG IVPB PRN
[2023-12-10] MEDS: IV FLUID CONTINUATION 1,000 ML IV ONE (08:26)
[2023-12-10] MEDS: LACTATED RINGERS 1,000 ML IV SCH ×2 (08:48→14:31)
[2023-12-10] MEDS: GABAPENTIN 300 MG CAP PO PRN (08:48)
[2023-12-10] MEDS: ACETAMINOPHEN TAB 500 MG TAB PO PRN (08:48)
[2023-12-10] MEDS: MELOXICAM 7.5 MG TAB PO PRN (08:48)
[2023-12-10] MEDS: ONDANSETRON 4 MG/2 ML VIAL IVP PRN (08:49)
[2023-12-10] MEDS: DEXAMETHASONE SOD PHOSPHATE 4 MG/ML 1 ML VIAL IV ONE (08:49)
[2023-12-10] MEDS: MIDAZOLAM 2 MG/2 ML VIAL IV ONE (09:07)
[2023-12-10] MEDS ORDERED: HYDROmorphone 0.5 MG/0.5 ML SYRINGE IVP PRN ×2 (09:30)
[2023-12-10] MEDS ORDERED: ONDANSETRON 4 MG/2 ML VIAL IVP PRN (09:30)
[2023-12-10] MEDS ORDERED: METOCLOPRAMIDE 5 MG/ML 2 ML VIAL IVP PRN (09:30)
[2023-12-10] MEDS ORDERED: SENNOSIDES-DOCUSATE SODIUM 1 EACH TAB PO PRN (09:30)
[2023-12-10] MEDS ORDERED: diphenhydrAMINE 25 MG CAP PO PRN (09:30)
[2023-12-10] MEDS ORDERED: PHENYLEPHRINE 10 MG/ML VIAL ONE (09:49)
[2023-12-10] MEDS ORDERED: ROCURONIUM 10 MG/ML (5 ML VIAL) IV ONE (09:49)
[2023-12-10] MEDS ORDERED: fentaNYL (PF) 50 MCG/ML 2 ML AMP ONE (09:49)
[2023-12-10] MEDS ORDERED: SUCCINYLCHOLINE CHLORIDE 200 MG/10 ML VIAL IV ONE (09:49)
[2023-12-10] MEDS ORDERED: TRANEXAMIC 1,000 MG/100ML-NACL PREMIX BAG ONE (09:49)
[2023-12-10] MEDS ORDERED: GLYCOPYRROLATE 0.2 MG/ML 2 ML VIAL ONE (09:49)
[2023-12-10] MEDS ORDERED: PROPOFOL 10 MG/ML 20 ML VIAL IV ONE (09:49)
[2023-12-10] MEDS ORDERED: ROPIVACAINE 5 MG/ML 30 ML VIAL ONE (09:49)
[2023-12-10] MEDS ORDERED: NEOSTIGMINE 1 MG/ML 10 ML VIAL ONE (09:49)
[2023-12-10] MEDS ORDERED: LIDOCAINE 1% INJ 10MG/ML (20 ML MDV) ONE (09:49)
[2023-12-10] MEDS ORDERED: DEXAMETHASONE SOD PHOSPHATE 4 MG/ML 1 ML VIAL ONE (09:49)
[2023-12-10] MEDS: ceFAZolin 1,000 MG in SODIUM CHLORIDE 0.9% 1,000 ML IRRIGATION ONE (10:45)
[2023-12-10] MEDS: VANCOMYCIN 1,000 MG VIAL MISCELLANE ONE (11:24)
--- NOTE | 2023-12-10 12:39 | XR ---
EXAMINATION TYPE: XR shoulder limited LT DATE OF EXAM: 12/10/2023 12:22 PM CLINICAL INDICATION: Female, 68 years old with history of post op; [facility] COMPARISON: None TECHNIQUE: XR shoulder limited LT; examined in AP, internally rotated and scapular Y projections. FINDINGS: Shoulder arthroplasty with hardware intact. Subcutaneous lucencies compatible with recent surgery. No evidence for fracture. Hardware appears in tact The remaining portions of the visualized chest are unremarkable. IMPRESSION: Post shoulder arthroplasty, no evidence for immediate postop complication.
--- NOTE | 2023-12-10 13:13 | OP ---
OPERATIVE REPORT DATE OF SERVICE : 12/10/2023 SALES AND EVENTS COORDINATOR: Remigio Meyer PA-C. PREOPERATIVE DIAGNOSIS: Left shoulder osteoarthrosis. POSTOPERATIVE DIAGNOSES: 1. Left shoulder advanced osteoarthrosis. 2. Left shoulder full-thickness supraspinatus tear. PROCEDURE: 1. Left Reverse Total Shoulder Arthroplasty ANESTHESIA: General endotracheal. ESTIMATED BLOOD LOSS: 100 mL. DRAINS: None. COMPLICATIONS: None apparent. DISPOSITION: Postanesthesia care unit. INDICATIONS: Renetta is a very pleasant 68-year-old female with longstanding history of left shoulder pain. Workup including x-rays and CT scan revealed advanced osteoarthrosis of the left shoulder. At this point, it is felt that she has failed conservative management and she would like to proceed with operative intervention. The risks of the procedure were discussed with her in detail. These risks included, but were not limited to risk of infection, nerve damage, bleeding, pain, instability in the shoulder, loosening of the implants, and deep infection. There is also small risk of deep vein thrombosis which could lead to fatal pulmonary embolism. The patient understood these risks. All questions were answered to her satisfaction. Appropriate informed consent was obtained. DESCRIPTION OF PROCEDURE: The patient was identified in the preoperative holding area. Surgical site was marked by both the patient and myself. She was given 2 g of Ancef IV for prophylactic purposes. She was then transported to the operative suite. She was placed supine on the operating room table. A general anesthetic was then administered and dosed per the anesthesia department without apparent complication. Examination under anesthesia was then performed of the left shoulder. She had elevation to 120 degrees. External rotation to the side was to 20 degrees. The patient was then placed into the beach chair position, well-padded in preparation for surgery. Great care was taken to ensure that her cervical spine was in neutral alignment, well-padded and maintained that way throughout the operative procedure. Great care was also taken to ensure that her legs were appropriately padded as well. The patient's left upper extremity was then prepped and draped in usual sterile fashion. Standard surgical pause was undertaken to ensure that we were operating the correct site and appropriate preoperative antibiotics had been given. All staff in room were in agreement, and we proceeded. The acromion AC joint clavicle and coracoid were marked with a surgical pen. A planned incision starting at the level of the clavicle and extending distally over the deltopectoral interval approximately 1 cm lateral to the coracoid was marked with a surgical pen. The incision was then made with a 10-blade scalpel. Dissection was carried down sharply to the deltoid fascia. The rotator interval was then identified at the level of the clavicle. A small band retractor was then placed onto the proximal deltoid. I then released the deltoid fascia on the lateral aspect of the cephalic vein. The cephalic vein was preserved and left in its bed medially. The cephalic vein was protected throughout the entire case. I then identified the clavipectoral fascia. This was incised proximally to the level of the coracoacromial ligament. The coracoacromial ligament was left intact. I then used my finger to spread the interval between the conjoint tendon and the subscapularis. I felt for the axillary nerve which was readily palpable. I then cleared the subacromial subdeltoid spaces of bursal and scar tissue. I then utilized a brown retractor to hold the deltoid and expose the humeral head. I then proceeded to release the subscapularis and the anterior inferior shoulder capsule. The rotator cuff was inspected. She did have a full-thickness tear of the supraspinatus. The rotator interval was then identified. The course of the biceps tendon was also identified. I then released the rotator interval. This was released at the base of the coracoid and then out laterally. The subscapularis and capsule were then released intertendinously. The subscapularis and capsule release extended distally in a lazy-S fashion approximately 1 cm medial to the biceps tendon. I then continued to release the capsule along the inferior neck in a vertical fashion to approximately the 6 o'clock position. Great care was taken to ensure the capsule was always visualized as it was released as to avoid injuring the axillary nerve root. I then brought the Castillo machine milker with the arm externally rotated and abducted. I continued to release the capsule inferomedially to approximately the 4 o'clock position. The inferior osteophytes were then removed as well. This was done with a rongeur. I then proceeded with preparation of the humerus. I removed all the goat's wallis osteophytes. I then removed the subchondral plate from the superior aspect of the humeral head utilizing a large rongeur. I then utilized a starting reamer to gain access to the humeral canal. This was approximately 1 cm medial to the rotator cuff insertion and 1 cm posterior to the bicipital groove. I then prepared the humeral canal with hand reaming. I started with a 6 mm reamer and incrementally increased until firm resistance was encountered at 15 mm. The reamer handle was then left in place. I then utilized a humeral resection guide set at 30 degrees of retrotorsion. The cutting block was then set approximately 1 to 2 mm above the insertion of rotator cuff. I then continued to osteotomize the humeral head with an oscillating saw. I removed the resection guide and then completed the osteotomy. I then proceeded with trial stem placement. I then incrementally broached up to a size 15 broach. This was done in 30 degrees of retrotorsion. The 15 mm broach was then left in place. I then inspected the rotator cuff. Again, she did have a tear of the supraspinatus. I made a decision at that point to proceed with a reverse total shoulder arthroplasty. At this point, I did release the biceps tendon. This was tenotomized at the level of the superior labrum. A bone hook was then used to pull the humerus out laterally. She had some small loose bodies which were removed. The Bhattman retractor was then placed on the posterior glenoid rim. The arm was then placed in approximately 80 degrees of abduction and in slight flexion on the Castillo stand. I then proceeded to remove the hypertrophic labrum to definitively identify the actual glenoid. I then used the mini base plate guide. This was placed flush with the glenoid. The pin was placed just slightly inferior to center and in 10 degrees of inferior tilt. I then over-reamed the pin with the mini base plate reamer. I then used the small offset guide placing the small offset guide posterior superior. The glenosphere would fit flush with the glenoid. As far as reaming, we did the little reaming as possible as to preserve as much subchondral bone as possible. I then had the printing sales representative open a mini base plate with a small augment. The augment was then placed posterosuperiorly. The base plate was impacted into the glenoid. I then placed a 30 mm central screw. I had an excellent purchase in bone. When it was fully seated, I was able to rotate the scapula through the screwdriver. I then proceeded to place the peripheral locking screws. The inferior screw was a 25 mm screw. The anterior and posterior screws were 15 mm screws and the superior screw was a 20 mm screw. The wound was thoroughly irrigated with sterile saline solution with antibiotic added via pulse lavage. The Shipley taper was dried and I placed a 40 mm glenosphere. This was slightly offset inferiorly. It was placed onto a dry Shipley taper and impacted securely onto the base plate. I then proceeded with trial reduction. I started with a standard tray standard poly. This was a mildly difficult reduction. It was stable throughout a full range of motion. There was no impingement noted. I made a decision to proceed with the standard tray standard poly. The shoulder was then carefully redislocated. Again, the wound was thoroughly irrigated. The IrriSept antiseptic solution was utilized. I had the printing sales representative open a size 15 mini stem, a standard tray, and a standard poly for a 40 mm glenosphere. The real stem was then impacted into the proximal humerus in approximately 30 degrees of retrotorsion. The Shipley taper was dried and then the standard tray standard poly for 40 mm glenosphere was then impacted onto the real stem. Again, the shoulder was reduced. Again, it was a mildly difficult reduction. It was very stable throughout a full range of motion. There was no impingement noted. The axillary nerve was palpated and was intact. At this point in time, we proceeded with closure. Again, we utilized IrriSept antiseptic solution at this point in time again. Approximately 500 mg of vancomycin powder was then placed deep. The deltopectoral was then reapproximated with 0 Vicryl interrupted suture. The subcutaneous tissue was again thoroughly irrigated and the remaining 500 mg of vancomycin powder was placed subcutaneously. The subcutaneous tissue was then closed with 2-0 Vicryl interrupted suture and the skin was closed with a running 3-0 Quill suture. Dermabond was applied to the incision. Sterile compressive dressings were applied. The patient's left upper extremity was placed into a shoulder immobilizer. All sponge and needle counts were deemed correct prior to closure. The patient tolerated the procedure without apparent complication. She was transferred to the recovery room in stable condition. MMODL / IJN: [id number] / MTDThea
--- NOTE | 2023-12-10 20:56 | P.ANPRN ---
Procedure Note - Anesthesia - Nerve Block Performed Left Interscalene Single Time Out Performed: Yes Date of Procedure: 12/10/23 Procedure Start Time: : Procedure Stop Time: : Location of Patient: PreOp Indication: Acute Post-Operative Pain, Requested by Surgeon Sedation Type: Sedate with meaningful contact maintained Preparation: Sterile Prep Position: Supine Needle Types: Pajunk Needle Gauge: 21 Ultrasound used to visualize needle placement: Yes Ultrasound used to observe medication spread: Yes Blood Aspirated: No Pain Paresthesia on Injection Noted: No Resistance on Injection: Normal Image Stored and Saved: Yes Events: Uneventful and Well Tolerated (ropivacaine ropivacaine 0.5% 20 cc plus dexamethasone 4 mg)
[2023-12-10] MEDS: oxyCODONE-APAP 7.5-325MG 1 EACH TAB PO PRN (21:03)
[2023-12-11 08:42] LABS: Basophils # (A) 0.02 X 10*3/uL (0.00-0.10); Basophils % (A) 0.2 %; Eosinophils # (A) 0 X 10*3/uL (0.04-0.35); Eosinophils % (A) 0 %; HCT 32.5 % (37.2-46.3); HGB 10.8 g/dL (12.0-15.0); Lymphocytes # (A) 1.08 X 10*3/uL (0.90-5.00); Lymphocytes % (A) 8.5 %; MCH 30.5 pg (27.0-32.0); MCHC 33.2 g/dL (32.0-37.0); MCV 91.8 FL (80.0-97.0); Mean Platelet Volume 9.2 FL (9.5-12.2); Monocytes # (A) 1.22 X 10*3/uL (0.20-1.00); Monocytes % (A) 9.6 %; NRBC Per 100 WBC 0 X 10*3/uL (0.00-0.01); Neutrophils # (A) 10.28 X 10*3/uL (1.80-7.70); Neutrophils % (A) 81.3 %; Platelet Count 343 X 10*3/uL (140-440); RBC 3.54 X 10*6/uL (4.10-5.20); RDW 13.6 % (11.5-14.5); WBC 12.65 X 10*3/uL (4.50-10.00)
[2023-12-11] MEDS: PANTOPRAZOLE 40 MG/10 ML VIAL IVP SCH (08:57)
[2023-12-11] MEDS: FLUoxetine HCL 20 MG CAP PO SCH (08:57)
[2023-12-11] MEDS: HYDROmorphone 0.5 MG/0.5 ML SYRINGE IVP PRN (08:58)
--- NOTE | 2023-12-11 10:12 | P.CONS ---
History of Present Illness - Reason for Consult Consult date: 12/11/23 Medical management Requesting physician: Bryant Mcgovern - Chief Complaint Left shoulder OA, status post cyst arthroplasty - History of Present Illness This is a 68-year-old female with past medical history significant for hypertension, hyperlipidemia, anxiety, depression, prior nicotine dependence and multiple other medical issues status post Secondary to OA. Reports she had a right shoulder surgery completed with Dr. Mcgovern about a year and a half ago; states she is an avid water skier. Numbness and tingling of fingers present yesterday, resolved. Denied pain throughout the night, beginning to have pain sensation. Denies chest pain, palpitations or shortness of breath. Maintaining O2 sats in the high 90s on room air. Patient has been up to the bathroom, tolerated exertion well. Denies lightheadedness, dizziness or focal deficits. Hemoglobin 10.8, preoperative hemoglobin 13.3. afebrile, WBC 12.65. blood pressures soft. Denies nausea, vomiting or diarrhea. No flatus, no bowel movement. Review of Systems Constitutional: Denied any fatigue denied any fever. Cardio vascular: denied any chest pain, palpitations Gastrointestinal denied any nausea vomiting Pulmonary: Denied any shortness of breath cough Neurologic denied any new focal deficits ROS Statement: Those systems with pertinent positive or pertinent negative responses have been documented in the HPI. ROS Other: All systems not noted in ROS Statement are negative. Past Medical History Past Medical History: Hyperlipidemia, Hypertension History of Any Multi-Drug Resistant Organisms: None Reported Past Surgical History: Appendectomy, Section, Joint Replacement, Tubal Ligation Additional Past Surgical History / Comment(s): rt shoulder replaced Past Anesthesia/Blood Transfusion Reactions: No Reported Reaction Past Psychological History: Anxiety, Depression Smoking Status: Former smoker Past Alcohol Use History: Occasional Additional Past Alcohol Use History / Comment(s): quit 37 yrs ago Past Drug Use History: None Reported - Past Family History Sister(s) Family Medical History: Cancer Additional Family Medical History / Comment(s): thyroid Medications and Allergies Home Medications Medication Instructions Recorded Confirmed Type Atorvastatin [Lipitor] 40 mg PO HS 02/04/22 12/10/23 History Biotin [Biotin Disolve] 10,000 mcg PO DAILY 02/04/22 12/10/23 History FLUoxetine HCL [PROzac] 80 mg PO DAILY 02/04/22 12/10/23 History Fish Oil/Dha/Epa [Fish Oil 1,200 1 each PO DIRECTED 02/04/22 12/10/23 History mg Fish Oil] Ibuprofen [Motrin Ib] 600 mg PO DIRECTED PRN 02/04/22 12/10/23 History LORazepam [Ativan] 0.5 mg PO BID PRN 02/04/22 12/10/23 History Metoprolol Tartrate [Lopressor] 25 mg PO HS 02/04/22 12/10/23 History Multivitamins, Thera [Multivitamin 1 tab PO DAILY 02/04/22 12/10/23 History (formulary)] lamoTRIgine [Lamictal] 200 mg PO HS 02/04/22 12/10/23 History Docusate [Colace] 100 mg PO BID #60 capsule 12/10/23 Rx Doxycycline Hyclate 100 mg PO BID #10 tab 12/10/23 Rx Ondansetron [Zofran] 4 mg PO Q8HR PRN #21 tab 12/10/23 Rx oxyCODONE-APAP 7.5-325MG [Percocet 1 tab PO Q4HR PRN #21 tab 12/10/23 Rx 7.5-325 mg] Allergies Allergy/AdvReac Type Severity Reaction Status Date / Time No Known Allergies Allergy Verified 12/10/23 08:18 Physical Exam Vitals: Vital Signs Temp Pulse Pulse Resp BP Pulse Ox 12/11/23 08:00 98.0 F 71 18 109/68 97 12/11/23 01:50 97.9 F 67 18 90/59 94 L 12/10/23 22:30 98.3 F 75 14 100/65 95 12/10/23 16:10 87 114/75 93 L 12/10/23 15:57 108 H 111/63 95 12/10/23 15:42 86 107/77 95 12/10/23 15:26 86 114/64 12/10/23 15:10 81 104/68 94 L 12/10/23 15:04 98.3 F 83 17 106/72 93 L 12/10/23 14:30 81 16 118/75 94 L 12/10/23 14:00 81 16 96/56 95 12/10/23 13:45 82 16 94/55 93 L 12/10/23 13:30 84 16 99/57 94 L 12/10/23 13:15 82 16 93/54 94 L 12/10/23 13:00 74 16 94/51 100 12/10/23 12:43 74 16 100/55 100 12/10/23 12:28 75 16 105/57 100 12/10/23 12:13 79 16 127/75 100 12/10/23 11:58 90 16 141/70 100 Intake and Output 12/10/23 12/11/23 12/11/23 22:59 06:59 14:59 Intake Total 250 Balance 250 Intake: Oral 250 Other: # Voids 1 3 PHYSICAL EXAM: VITAL SIGNS: Reviewed GENERAL: Pleasant female ,alert and oriented x 3, sitting up in bed, no acute distress HEENT: Normocephalic, atraumatic conjunctivae normal. eyes normal. NECK: Supple, no JVD. No thyroid enlargement. No LNs CARDIOVASCULAR: S1, S2 regular. No murmur RESPIRATION: Unlabored, equal air entry, clear to auscultation, bilateral bases diminished. ABDOMEN: Soft, nondistended, nontender . No guarding. no masses palpable. Positive bowel sound Extremities: Left shoulder dressing clean dry and intact, positive radial pulse, moves digits freely. NERVOUS SYSTEM: Cranial N 2-12 grossly normal.No focal deficits. Strength and sensation grossly intact. Skin: Warm and dry, no rash Results CBC & Chem 7: 12/11/23 04:56 Labs: Abnormal Lab Results - Last 24 Hours (Table) 12/11/23 Range/Units 04:56 WBC 12.65 H (4.50-10.00) X 10*3/uL RBC 3.54 L (4.10-5.20) X 10*6/uL Hgb 10.8 L (12.0-15.0) g/dL Hct 32.5 L (37.2-46.3) % MPV 9.2 L (9.5-12.2) FL Immature Gran # 0.05 H (0.00-0.04) X 10*3/uL Neutrophils # 10.28 H (1.80-7.70) X 10*3/uL Monocytes # 1.22 H (0.20-1.00) X 10*3/uL Eosinophils # 0 L (0.04-0.35) X 10*3/uL Assessment and Plan Assessment: OA of left shoulder, failed conservative treatment, status post arthroplasty Postop anemia, expected outcome, recheck outpatient Atelectasis postoperative, expected outcome Hypertension Hyperlipidemia Anxiety, depression Former nicotine dependence Plan: Continue on current medication regimen ,monitoring and symptomatic treatment. Home meds reviewed and resumed accordingly, including beta-tami. Aggressive pulmonary toileting with incentive spirometer ordered. Pain management, DVT prophylaxis as per orthopedic surgery. Medically cleared for discharge. Follow-up with PCP in 1 week. Thank you for the consult. The impression and plan of care has been dictated as directed. : I performed a history and examination of this patient, discussed the same with the dictator. I agree with the dictator's note ,documented as a scribe. Any additional findings or plans will be noted.
[2023-12-11] MEDS: oxyCODONE-APAP 7.5-325MG 1 EACH TAB PO PRN (10:40)
[2023-12-11] MEDS: oxyCODONE ER 10 MG TAB.ER.12H PO SCH (12:45)
--- NOTE | 2023-12-11 13:11 | P.PN ---
Subjective Progress Note Date: 12/11/23 Principal diagnosis: Left Reverse TSA Patient is seen at bedside this morning. She is postop day #1 from left reverse total shoulder arthroplasty. She has pain at the surgical site as expected but denies any new complaints. She denies numbness, tingling or calf pain. Review of systems is negative for fever, chills, chest pain, shortness of breath or other Objective - Vital Signs Vital signs: Vital Signs Temp 98.0 F 12/11/23 08:00 Pulse 71 12/11/23 08:55 Resp 18 12/11/23 08:55 BP 109/68 12/11/23 08:00 Pulse Ox 97 12/11/23 08:00 FiO2 Intake & Output 12/10/23 12/11/23 12/11/23 18:59 06:59 18:59 Intake Total 1101 Output Total 100 Balance 1001 Weight 86.5 kg Intake: IV 851 Oral 250 Output: Estimated Blood Loss 100 Other: # Voids 1 3 - Exam Inspection reveals a benign surgical wound. There is no active bleeding or drainage. Neurovascular status is intact throughout the upper extremity with motor and sensation fully intact. Calf is soft and nontender. 2+ dorsalis pedis pulse and less than 2 second cap refill is present. - Constitutional General appearance: Present: no acute distress - Labs CBC & Chem 7: 12/11/23 04:56 Labs: Abnormal Lab Results - Last 24 Hours (Table) 12/11/23 Range/Units 04:56 WBC 12.65 H (4.50-10.00) X 10*3/uL RBC 3.54 L (4.10-5.20) X 10*6/uL Hgb 10.8 L (12.0-15.0) g/dL Hct 32.5 L (37.2-46.3) % MPV 9.2 L (9.5-12.2) FL Immature Gran # 0.05 H (0.00-0.04) X 10*3/uL Neutrophils # 10.28 H (1.80-7.70) X 10*3/uL Monocytes # 1.22 H (0.20-1.00) X 10*3/uL Eosinophils # 0 L (0.04-0.35) X 10*3/uL Assessment and Plan (1) Osteoarthritis of left shoulder Narrative/Plan: She will continue with routine postop orthopedic protocol including pain management, wound care, DVT prophylaxis and medical management. Expect that she will transfer to home tomorrow Current Visit: Yes Status: Acute Priority: Medium Code(s): M19.012 - JEREMY COLEMAN OSTEOARTHRITIS, LEFT SHOULDER SNOMED Code(s): 920804381190524 Time with Patient: Less than 30
[2023-12-11] MEDS: lamoTRIgine 100 MG TAB PO SCH (20:43)
[2023-12-11] MEDS: METOPROLOL TARTRATE 25 MG TAB PO SCH (20:43)
[2023-12-12 09:18] VITALS: BP 100/63
[2023-12-12 09:38] VITALS: PULSE 84; RESP 20; TEMP 98.7
--- NOTE | 2023-12-12 10:10 | P.DS ---
Providers Date of admission: 12/11/23 10:23 Expected date of discharge: 12/12/23 Attending physician: Bryant Mcgovern Consults: 12/10/23 09:30 Consult Physician Routine Consulting Provider: Wolfgang Driver Consult Reason/Comments: post op medical management Do you want consulting provider notified?: Yes Primary care physician: Darlyn Horowitz - Discharge Diagnosis(es) (1) S/p reverse total shoulder arthroplasty Current Visit: Yes Status: Acute (2) Osteoarthritis of left shoulder Current Visit: Yes Status: Acute Priority: Medium Hospital Course: This is a 68-year-old female with known history of degenerative arthritis of the left shoulder. The patient presented for evaluation as an outpatient. After discussion and consideration patient elects to proceed with reverse total shoulder arthroplasty. The patient is seen preoperatively by Dr. Mcgovern. Patient is admitted to [facility] on 12/10/2023 for reverse total shoulder arthroplasty. The procedure is performed without complication or sequelae. The patient is doing well postoperatively. Labs and vital signs are stable on day of discharge. On day of discharge the patient's shoulder incision is healing well. There is minimal erythema. There is no drainage noted at this time. There is minimal soft tissue swelling to the shoulder. Patient has full hand and wrist motion without difficulty or pain. Neurovascular status to the left upper extremity is intact. Patient is discharged home in good condition. Please see med rec for accurate list of home medications. Plan - Discharge Summary Discharge Rx Participant: No New Discharge Prescriptions: New Doxycycline Hyclate 100 mg PO BID #10 tab Sennosides-Docusate Sodium [Senokot-S] 2 each PO HS PRN tab PRN Reason: Constipation Docusate [Colace] 100 mg PO BID #60 capsule Ondansetron [Zofran] 4 mg PO Q8HR PRN #21 tab PRN Reason: Nausea oxyCODONE-APAP 10-325MG [Percocet 10-325 mg] 1 tab PO Q4HR PRN #36 tab PRN Reason: Pain Continue Multivitamins, Thera [Multivitamin (formulary)] 1 tab PO DAILY Biotin [Biotin Disolve] 10,000 mcg PO DAILY Metoprolol Tartrate [Lopressor] 25 mg PO HS FLUoxetine HCL [PROzac] 80 mg PO DAILY Fish Oil/Dha/Epa [Fish Oil 1,200 mg Fish Oil] 1 each PO DIRECTED Atorvastatin [Lipitor] 40 mg PO HS lamoTRIgine [LaMICtal] 200 mg PO HS LORazepam [Ativan] 0.5 mg PO BID PRN PRN Reason: Anxiety No Action Ibuprofen [Motrin Ib] 600 mg PO DIRECTED PRN PRN Reason: Pain Discharge Medication List Atorvastatin [Lipitor] 40 mg PO HS 02/04/22 [History] Biotin [Biotin Disolve] 10,000 mcg PO DAILY 02/04/22 [History] FLUoxetine HCL [PROzac] 80 mg PO DAILY 02/04/22 [History] Fish Oil/Dha/Epa [Fish Oil 1,200 mg Fish Oil] 1 each PO DIRECTED 02/04/22 [History] Ibuprofen [Motrin Ib] 600 mg PO DIRECTED PRN 02/04/22 [History] LORazepam [Ativan] 0.5 mg PO BID PRN 02/04/22 [History] Metoprolol Tartrate [Lopressor] 25 mg PO HS 02/04/22 [History] Multivitamins, Thera [Multivitamin (formulary)] 1 tab PO DAILY 02/04/22 [History] lamoTRIgine [LaMICtal] 200 mg PO HS 02/04/22 [History] Docusate [Colace] 100 mg PO BID #60 capsule 12/10/23 [Rx] Doxycycline Hyclate 100 mg PO BID #10 tab 12/10/23 [Rx] Ondansetron [Zofran] 4 mg PO Q8HR PRN #21 tab 12/10/23 [Rx] Sennosides-Docusate Sodium [Senokot-S] 2 each PO HS PRN tab 12/11/23 [Rx] oxyCODONE-APAP 10-325MG [Percocet 10-325 mg] 1 tab PO Q4HR PRN #36 tab 12/11/23 [Rx] Follow up Appointment(s)/Referral(s): Wolfgang Driver MD [STAFF PHYSICIAN] - 1 Week Bryant Mcgovern MD [STAFF PHYSICIAN] - 10 Days Activity/Diet/Wound Care/Special Instructions: Maintain sling Keep wound clean and dry take meds as directed f/u in office nonweightbearing Discharge Disposition: HOME SELF-CARE
--- NOTE | 2023-12-12 12:18 | P.PN ---
Subjective Progress Note Date: 12/12/23 This is a 68-year-old female with past medical history significant for hypertension, hyperlipidemia, anxiety, depression, prior nicotine dependence and multiple other medical issues status post Secondary to OA. Reports she had a right shoulder surgery completed with Dr. Mcgovern about a year and a half ago; states she is an avid water skier. Numbness and tingling of fingers present yesterday, resolved. Denied pain throughout the night, beginning to have pain sensation. Denies chest pain, palpitations or shortness of breath. Maintaining O2 sats in the high 90s on room air. Patient has been up to the bathroom, tolerated exertion well. Denies lightheadedness, dizziness or focal deficits. Hemoglobin 10.8, preoperative hemoglobin 13.3. afebrile, WBC 12.65. blood pressures soft. Denies nausea, vomiting or diarrhea. No flatus, no bowel movement. 12/12/2023 Patient is eval today resting in bed she is postoperative day #1 left shoulder arthroplasty. She is reporting minimal to moderate pain to the left shoulder controlled with [place]. Otherwise no acute complaints at this time. She like to discharge home today. Show 100/63 patient is at 92% on room air. She is encouraged to continue with the incentive spirometer 10 times an hour while awake while she is resting in bed. Review of Systems Constitutional: Denied any fatigue denied any fever. Cardio vascular: denied any chest pain, palpitations Gastrointestinal: denied any nausea, vomiting, diarrhea Pulmonary: Denied any shortness of breath cough Neurologic denied any new focal deficits All inpatient medications were reviewed and appropriate changes in these medications as dictated in the interval history and assessment and plan. PHYSICAL EXAMINATION: GENERAL: The patient is alert and oriented x3, not in any acute distress. Well developed, well nourished. HEENT: Pupils are round and equally reacting to light. EOMI. No scleral icterus. No conjunctival pallor. Normocephalic, atraumatic. No pharyngeal erythema. No thyromegaly. CARDIOVASCULAR: S1 and S2 present. No murmurs, rubs, or gallops. PULMONARY: Chest is clear to auscultation, no wheezing or crackles. ABDOMEN: Soft, nontender, nondistended, normoactive bowel sounds. No palpable organomegaly. MUSCULOSKELETAL: No joint swelling or deformity. EXTREMITIES: No cyanosis, clubbing, or pedal edema. NEUROLOGICAL: Gross neurological examination did not reveal any focal deficits. SKIN: No rashes. Assessment OA of left shoulder, failed conservative treatment, status post arthroplasty Postop anemia, expected outcome, recheck outpatient Atelectasis postoperative, expected outcome Hypertension Hyperlipidemia Anxiety, depression Former nicotine dependence Plan: Continue on current medication regimen ,monitoring and symptomatic treatment. Home meds reviewed and resumed accordingly, including beta-tami. Aggressive pulmonary toileting with incentive spirometer ordered. Pain management, DVT prophylaxis as per orthopedic surgery. Medically cleared for discharge. Follow-up with PCP in 1 week. Thank you for the consult. The impression and plan of care has been dictated by Caroline Fonseca Nurse Practitioner as directed. Dr. Ana MD I have performed a history and physical examination and medical decision making of this patient, discussed the same with the dictator, and agree with the dictators assessment and plan as written, documented as a scribe. Based on total visit time, I have performed more than 50% of this visit. Objective - Vital Signs Vital signs: Vital Signs Temp 98.7 F 12/12/23 07:23 Pulse 84 12/12/23 11:05 Resp 20 12/12/23 11:05 BP 100/63 12/12/23 09:18 Pulse Ox 92 L 12/12/23 07:23 FiO2 Intake & Output 12/11/23 12/12/23 12/12/23 18:59 06:59 18:59 Intake Total 2600 Balance 2600 Intake: Oral 2600 Other: # Voids 2 4 - Labs CBC & Chem 7: 12/11/23 04:56 Assessment and Plan Time with Patient: Less than 30
== END 2023-12-12 15:08 | disposition home or self-care (01) ==
LOC: OR 08:04 → 4SSUR 11:50 → OR 12-11 10:23
PROVIDERS: ADMIT Orthopaedic Surgery Sports Medicine; ATTEND Orthopaedic Surgery Sports Medicine
DX: M19.012 Primary osteoarthritis, left shoulder (principal); M75.122 Complete rotator cuff tear or rupture of left shoulder, not specified as traumatic; M25.712 Osteophyte, left shoulder; G89.18 Other acute postprocedural pain; D64.89 Other specified anemias; J98.11 Atelectasis; I10 Essential (primary) hypertension; E78.5 Hyperlipidemia, unspecified; F41.9 Anxiety disorder, unspecified; F32.A Depression, unspecified; Z87.891 Personal history of nicotine dependence; Z79.899 Other long term (current) drug therapy
CPT/HCPCS: 64415; 85025; 96361; 96365; 96366; 96374; 96375; 96376

== ENCOUNTER 2023-12-15 02:40 | Emergency (ER) | payer MEDICARE ==
--- NOTE | 2023-12-15 03:08 | ED ---
Recheck HPI <Jose Martin Arciniega - Last Filed: 12/15/23 09:15> - General Source: patient, RN notes reviewed, old records reviewed Mode of arrival: wheelchair Limitations: no limitations - History of Present Illness MD Complaint: wound re-check (Recheck of surgical wound) -: days(s) Returns Today for: Called Because of Abnormal Lab/Test, persistent/worsening pain related to initial visit Symptoms Since Prior Visit: worsening pain Associated Symptoms: none <Jose Martin Arellano - Last Filed: 12/28/23 10:28> - General Chief Complaint: Extremity Problem,Nontraumatic Stated Complaint: Post op complications Time Seen by Provider: 12/15/23 02:49 - History of Present Illness Initial Comments: This is a 68-year-old female to ER for evaluation of left shoulder pain left arm pain and arm swelling with redness patient presents with concern for infection. No fevers (Jose Martin Arellano) - Related Data Home Medications Medication Instructions Recorded Confirmed Atorvastatin [Lipitor] 40 mg PO HS 02/04/22 12/10/23 Biotin [Biotin Disolve] 10,000 mcg PO DAILY 02/04/22 12/10/23 FLUoxetine HCL [PROzac] 80 mg PO DAILY 02/04/22 12/10/23 Fish Oil/Dha/Epa [Fish Oil 1,200 1 each PO DIRECTED 02/04/22 12/10/23 mg Fish Oil] Ibuprofen [Motrin Ib] 600 mg PO DIRECTED PRN 02/04/22 12/10/23 LORazepam [Ativan] 0.5 mg PO BID PRN 02/04/22 12/10/23 Metoprolol Tartrate [Lopressor] 25 mg PO HS 02/04/22 12/10/23 Multivitamins, Thera [Multivitamin 1 tab PO DAILY 02/04/22 12/10/23 (formulary)] lamoTRIgine [LaMICtal] 200 mg PO HS 02/04/22 12/10/23 Previous Rx's Medication Instructions Recorded Docusate [Colace] 100 mg PO BID #60 capsule 12/10/23 Doxycycline Hyclate 100 mg PO BID #10 tab 12/10/23 Ondansetron [Zofran] 4 mg PO Q8HR PRN #21 tab 12/10/23 Sennosides-Docusate Sodium 2 each PO HS PRN tab 12/11/23 [Senokot-S] oxyCODONE-APAP 10-325MG [Percocet 1 tab PO Q4HR PRN #36 tab 12/11/23 10-325 mg] Allergies Allergy/AdvReac Type Severity Reaction Status Date / Time No Known Allergies Allergy Verified 12/15/23 02:44 Review of Systems ROS Other: All systems not noted in ROS Statement are negative. <Jose Martin Arciniega - Last Filed: 12/15/23 09:15> ROS Other: All systems not noted in ROS Statement are negative. <Jose Martin Arellano - Last Filed: 12/28/23 10:28> ROS Statement: Those systems with pertinent positive or pertinent negative responses have been documented in the HPI. Past Medical History Past Medical History: Hyperlipidemia, Hypertension History of Any Multi-Drug Resistant Organisms: None Reported Past Surgical History: Appendectomy, Section, Joint Replacement, Tubal Ligation Additional Past Surgical History / Comment(s): rt shoulder replaced, left shoulder Past Anesthesia/Blood Transfusion Reactions: No Reported Reaction Past Psychological History: Anxiety, Depression Smoking Status: Former smoker Past Alcohol Use History: Occasional Past Drug Use History: None Reported - Past Family History Daughter(s) Family Medical History: Cancer Sister(s) Family Medical History: Cancer Additional Family Medical History / Comment(s): thyroid <Jose Martin Arellano - Last Filed: 12/28/23 10:28> General Exam Limitations: no limitations General appearance: alert, in no apparent distress Head exam: Present: atraumatic, normocephalic, normal inspection Eye exam: Present: normal appearance, PERRL, EOMI. Absent: scleral icterus, conjunctival injection, periorbital swelling ENT exam: Present: normal exam, mucous membranes moist Neck exam: Present: normal inspection. Absent: tenderness, meningismus, lymphadenopathy Respiratory exam: Present: normal lung sounds bilaterally. Absent: respiratory distress, wheezes, rales, rhonchi, stridor Cardiovascular Exam: Present: regular rate, normal rhythm, normal heart sounds. Absent: systolic murmur, diastolic murmur, rubs, gallop, clicks GI/Abdominal exam: Present: soft, normal bowel sounds. Absent: distended, tenderness, guarding, rebound, rigid Extremities exam: Present: normal inspection, full ROM, normal capillary refill. Absent: tenderness, pedal edema, joint swelling, calf tenderness Back exam: Present: normal inspection Neurological exam: Present: alert, oriented X3, CN II-XII intact Psychiatric exam: Present: normal affect, normal mood Skin exam: Present: warm, dry, intact, normal color. Absent: rash <Jose Martin Arellano - Last Filed: 12/28/23 10:28> Course <Jose Martin Arellano - Last Filed: 12/28/23 10:28> Vital Signs 12/15/23 12/15/23 12/15/23 02:45 03:05 03:51 Temperature 98.7 F 97.4 F L Pulse Rate 114 H 88 Respiratory 24 18 Rate Blood Pressure 130/81 114/74 O2 Sat by Pulse 99 97 Oximetry 12/15/23 12/15/23 12/15/23 05:38 06:34 09:00 Temperature Pulse Rate 88 88 90 Respiratory 18 18 18 Rate Blood Pressure 114/69 118/70 116/69 O2 Sat by Pulse 94 L 94 L 94 L Oximetry 12/15/23 09:23 Temperature 98.3 F Pulse Rate Respiratory Rate Blood Pressure O2 Sat by Pulse Oximetry - Reevaluation(s) Reevaluation #1: 12/15/23 05:31 Records reviewed (Jose Martin Arellano) Reevaluation #2: 12/15/23 05:31 Patient symptoms improved (Jose Martin Arellano) Reevaluation #3: 12/15/23 05:31 Patient informed of results questions answered (Jose Martin Arellano) Reevaluation #4: Was pt. sent in by a medical professional or institution (, PA, CENTER DIRECTOR, urgent care, hospital, or residential...) When possible be specific @ -no Did you speak to anyone other than the patient for history (EMS, parent, family, police, friend...)? What history was obtained from this source @ -no Did you review nursing and triage notes (agree or disagree)? Why? @ -agree Are old charts reviewed (outside hosp., previous admission, EMS record, old EKG, old radiological studies, urgent care reports/EKG's, residential records)? Report findings @ -yes Differential Diagnosis (chest pain, altered mental status, abdominal pain women, abdominal pain men, vaginal bleeding, weakness, fever, dyspnea, syncope, headache, dizziness, GI bleed, back pain, seizure, CVA, palpatations, mental health, musculoskeletal)? @ -prior EKG interpreted by me (3pts min.). @ -yes X-rays interpreted by me (1pt min.). @ -yes negative for acute disease CT interpreted by me (1pt min.). @ -no U/S interpreted by me (1pt. min.). @ -Yes negative for acute disease What testing was considered but not performed or refused? (CT, X-rays, U/S, labs)? Why? @ -none What meds were considered but not given or refused? Why? @ -none Did you discuss the management of the patient with other professionals (professionals i.e. , PA, CENTER DIRECTOR, lab, RT, psych nurse, social services analyst, paper finisher, teacher, vessel traffic officer, case folder)? Give summary @ -no Was smoking cessation discussed for >3mins.? @ -no Was critical care preformed (if so, how long)? @ -no Were there social determinants of health that impacted care today? How? (Homelessness, low income, unemployed, alcoholism, drug addiction, transportation, low edu. Level, literacy, decrease access to med. care, shelter, rehab)? @ -none Was there de-escalation of care discussed even if they declined (Discuss DNR or withdrawal of care, Hospice)? DNR status @ -no What co-morbidities impacted this encounter? (DM, HTN, Smoking, COPD, CAD, Cancer, CVA, ARF, Chemo, Hep., AIDS, mental health diagnosis, sleep apnea, morbid obesity)? @ -none Was patient admitted / discharged? Hospital course, mention meds given and route, prescriptions, significant lab abnormalities, going to OR and other pertinent info. @ - 68 female for postoperative infection. Patient presents today with left shoulder pain pain is improved patient has no complaints and can be discharged home Discharge yes negative for acute disease Undiagnosed new problem with uncertain prognosis? @ -no Drug Therapy requiring intensive monitoring for toxicity (Heparin, Nitro, Insulin, Cardizem)? @ -no Were any procedures done? @ -no Diagnosis/symptom? @ - Acute, or Chronic, or Acute on Chronic? @ -Acute Uncomplicated (without systemic symptoms) or Complicated (systemic symptoms)? @ -Complicated Side effects of treatment? @ -no Exacerbation, Progression, or Severe Exacerbation? @ -exacerbation Poses a threat to life or bodily function? How? (Chest pain, [place], AR, pneumonia, PE, COPD, DKA, ARF, appy, cholecystitis, CVA, Diverticulitis, Homicidal, Suicidal, threat to staff... and all critical care pts) @ -yes postoperative complication postoperative pain (Jose Martin Arellano) Medical Decision Making - Lab Data Result diagrams: 12/15/23 03:09 12/15/23 03:09 <Jose Martin Arciniega - Last Filed: 12/15/23 09:15> - Lab Data Result diagrams: 12/15/23 03:09 12/15/23 03:09 - Radiology Data Radiology results: report reviewed (Chest x-ray shoulder x-ray negative for acute disease ultrasound left upper extremity negative for DVT), image reviewed <Jose Martin Arellano - Last Filed: 12/28/23 10:28> - Medical Decision Making Was patient admitted / discharged? Hospital course, mention meds given and route, prescriptions, significant lab abnormalities, going to OR and other pertinent info. @ -Patient was signed out to me by Dr. Arellano at 7 AM. Ultrasound was interpreted by myself. Ultrasound showed no DVT. Undiagnosed new problem with uncertain prognosis? @ -No Drug Therapy requiring intensive monitoring for toxicity (Heparin, Nitro, Insulin, Cardizem)? @ -No Were any procedures done? @ -No Diagnosis/symptom? @ -Postsurgical complications Acute, or Chronic, or Acute on Chronic? @ -Acute Uncomplicated (without systemic symptoms) or Complicated (systemic symptoms)? @ -Uncomplicated Side effects of treatment? @ -No Exacerbation, Progression, or Severe Exacerbation? @ -No Poses a threat to life or bodily function? How? (Chest pain, [place], [place], pneumonia, PE, COPD, DKA, ARF, appy, cholecystitis, CVA, Diverticulitis, Homicidal, Suicidal, threat to staff... and all critical care pts) @ -No (Jose Martin Arciniega) 68 female for postoperative infection. Patient presents today with left shoulder pain pain is improved patient has no complaints and can be discharged home (Jose Martin Arellano) - Lab Data Lab Results 12/15/23 12/15/23 12/15/23 Range/Units 03:09 03:09 03:09 WBC 9.9 (3.8-10.6) k/uL RBC 4.05 (3.80-5.40) m/uL Hgb 12.2 (11.4-16.0) gm/dL Hct 36.9 (34.0-46.0) % MCV 91.2 (80.0-100.0) fL MCH 30.1 (25.0-35.0) pg MCHC 33.0 (31.0-37.0) g/dL RDW 13.7 (11.5-15.5) % Plt Count 474 H (150-450) k/uL MPV 7.6 Neutrophils % 68 % Lymphocytes % 21 % Monocytes % 6 % Eosinophils % 3 % Basophils % 0 % Neutrophils # 6.8 (1.3-7.7) k/uL Lymphocytes # 2.0 (1.0-4.8) k/uL Monocytes # 0.6 (0-1.0) k/uL Eosinophils # 0.3 (0-0.7) k/uL Basophils # 0.0 (0-0.2) k/uL PT 10.1 (10.0-12.5) sec INR 0.9 (<1.2) APTT 23.3 (22.0-30.0) sec D-Dimer (<0.60) mg/L FEU Sodium 135 L (137-145) mmol/L Potassium 4.0 (3.5-5.1) mmol/L Chloride 103 (98-107) mmol/L Carbon Dioxide 23 (22-30) mmol/L Anion Gap 9 mmol/L BUN 12 (7-17) mg/dL Creatinine 0.67 (0.52-1.04) mg/dL Est GFR (CKD-EPI)AfAm >90 (>60 ml/min/1.73 sqM) Est GFR (CKD-EPI)NonAf >90 (>60 ml/min/1.73 sqM) Glucose 105 H (74-99) mg/dL Lactic Ac Sepsis Rflx Plasma Lactic Acid Mark (0.7-2.0) mmol/L Calcium 9.6 (8.4-10.2) mg/dL Phosphorus 3.2 (2.5-4.5) mg/dL Magnesium 1.8 (1.6-2.3) mg/dL Total Bilirubin 0.6 (0.2-1.3) mg/dL AST 29 (14-36) U/L ALT 20 (4-34) U/L Alkaline Phosphatase 62 (38-126) U/L Troponin I (0.000-0.034) ng/mL C-Reactive Protein (<1.0) mg/dL Total Protein 6.0 L (6.3-8.2) g/dL Albumin 3.6 (3.5-5.0) g/dL 12/15/23 12/15/23 12/15/23 Range/Units 03:09 03:09 03:09 WBC (3.8-10.6) k/uL RBC (3.80-5.40) m/uL Hgb (11.4-16.0) gm/dL Hct (34.0-46.0) % MCV (80.0-100.0) fL MCH (25.0-35.0) pg MCHC (31.0-37.0) g/dL RDW (11.5-15.5) % Plt Count (150-450) k/uL MPV Neutrophils % % Lymphocytes % % Monocytes % % Eosinophils % % Basophils % % Neutrophils # (1.3-7.7) k/uL Lymphocytes # (1.0-4.8) k/uL Monocytes # (0-1.0) k/uL Eosinophils # (0-0.7) k/uL Basophils # (0-0.2) k/uL PT (10.0-12.5) sec INR (<1.2) APTT (22.0-30.0) sec D-Dimer (<0.60) mg/L FEU Sodium (137-145) mmol/L Potassium (3.5-5.1) mmol/L Chloride (98-107) mmol/L Carbon Dioxide (22-30) mmol/L Anion Gap mmol/L BUN (7-17) mg/dL Creatinine (0.52-1.04) mg/dL Est GFR (CKD-EPI)AfAm (>60 ml/min/1.73 sqM) Est GFR (CKD-EPI)NonAf (>60 ml/min/1.73 sqM) Glucose (74-99) mg/dL Lactic Ac Sepsis Rflx Plasma Lactic Acid Mark 2.5 H* (0.7-2.0) mmol/L Calcium (8.4-10.2) mg/dL Phosphorus (2.5-4.5) mg/dL Magnesium (1.6-2.3) mg/dL Total Bilirubin (0.2-1.3) mg/dL AST (14-36) U/L ALT (4-34) U/L Alkaline Phosphatase (38-126) U/L Troponin I <0.012 (0.000-0.034) ng/mL C-Reactive Protein 2.6 H (<1.0) mg/dL Total Protein (6.3-8.2) g/dL Albumin (3.5-5.0) g/dL 12/15/23 12/15/23 Range/Units 03:09 03:47 WBC (3.8-10.6) k/uL RBC (3.80-5.40) m/uL Hgb (11.4-16.0) gm/dL Hct (34.0-46.0) % MCV (80.0-100.0) fL MCH (25.0-35.0) pg MCHC (31.0-37.0) g/dL RDW (11.5-15.5) % Plt Count (150-450) k/uL MPV Neutrophils % % Lymphocytes % % Monocytes % % Eosinophils % % Basophils % % Neutrophils # (1.3-7.7) k/uL Lymphocytes # (1.0-4.8) k/uL Monocytes # (0-1.0) k/uL Eosinophils # (0-0.7) k/uL Basophils # (0-0.2) k/uL PT (10.0-12.5) sec INR (<1.2) APTT (22.0-30.0) sec D-Dimer 2.68 H (<0.60) mg/L FEU Sodium (137-145) mmol/L Potassium (3.5-5.1) mmol/L Chloride (98-107) mmol/L Carbon Dioxide (22-30) mmol/L Anion Gap mmol/L BUN (7-17) mg/dL Creatinine (0.52-1.04) mg/dL Est GFR (CKD-EPI)AfAm (>60 ml/min/1.73 sqM) Est GFR (CKD-EPI)NonAf (>60 ml/min/1.73 sqM) Glucose (74-99) mg/dL Lactic Ac Sepsis Rflx Y Plasma Lactic Acid Mark (0.7-2.0) mmol/L Calcium (8.4-10.2) mg/dL Phosphorus (2.5-4.5) mg/dL Magnesium (1.6-2.3) mg/dL Total Bilirubin (0.2-1.3) mg/dL AST (14-36) U/L ALT (4-34) U/L Alkaline Phosphatase (38-126) U/L Troponin I (0.000-0.034) ng/mL C-Reactive Protein (<1.0) mg/dL Total Protein (6.3-8.2) g/dL Albumin (3.5-5.0) g/dL Disposition <Jose Martin Arciniega - Last Filed: 12/15/23 09:15> Is patient prescribed a controlled substance at d/c from ED?: No Time of Disposition: 06:00 <Jose Martin Arellano - Last Filed: 12/28/23 10:28> Clinical Impression: Postoperative pain Disposition: HOME SELF-CARE Condition: Good Instructions (If sedation given, give patient instructions): Shoulder Pain (ED) Referrals: None,Stated [Primary Care Provider] - 1-2 days
[2023-12-15 03:22] LABS: Basophils % (A) 0 %; Eosinophils # (A) 0.3 k/uL (0-0.7); Eosinophils % (A) 3 %; HCT 36.9 % (34.0-46.0); HGB 12.2 gm/dL (11.4-16.0); Lymphocytes % (A) 21 %; MCH 30.1 pg (25.0-35.0); MCV 91.2 fL (80.0-100.0); Mean Platelet Volume 7.6; Monocytes # (A) 0.6 k/uL (0-1.0); Monocytes % (A) 6 %; Neutrophils # (A) 6.8 k/uL (1.3-7.7); Neutrophils % (A) 68 %; Platelet Count 474 k/uL (150-450); RBC 4.05 m/uL (3.80-5.40); RDW 13.7 % (11.5-15.5); WBC 9.9 k/uL (3.8-10.6)
[2023-12-15] MEDS: ACETAMINOPHEN TAB 500 MG TAB PO STA (03:23)
[2023-12-15] MEDS: IBUPROFEN 600 MG TAB PO STA (03:24)
[2023-12-15] MEDS: ONDANSETRON 4 MG/2 ML VIAL IVP STA (03:24)
[2023-12-15] MEDS: MORPHINE SULFATE 4 MG/ML SYRINGE IV STA (03:24)
[2023-12-15] MEDS: LORazepam 2 MG/ML INJ IV STA (03:25)
[2023-12-15] MEDS: SODIUM CHLORIDE 0.9% 1,000 ML IV STA (03:25)
[2023-12-15 03:31] LABS: ALT 20 U/L (4-34); AST 29 U/L (14-36); African American GFR (CKD) >90 (>60 ml/min/1.73 sqM); Albumin 3.6 g/dL (3.5-5.0); Alkaline Phosphatase 62 U/L (38-126); Anion Gap 9 mmol/L; Blood Urea Nitrogen 12 mg/dL (7-17); Calcium 9.6 mg/dL (8.4-10.2); Carbon Dioxide 23 mmol/L (22-30); Chloride 103 mmol/L (98-107); Glucose 105 mg/dL (74-99); Magnesium 1.8 mg/dL (1.6-2.3); Non-African American GFR(CKD) >90 (>60 ml/min/1.73 sqM); Phosphorus 3.2 mg/dL (2.5-4.5); Sodium 135 mmol/L (137-145); Total Bilirubin 0.6 mg/dL (0.2-1.3)
[2023-12-15 03:33] LABS: INR 0.9 (<1.2); Partial Thromboplastin Time 23.3 sec (22.0-30.0); Prothrombin Time 10.1 sec (10.0-12.5)
[2023-12-15 03:51] VITALS: RESP 18
--- NOTE | 2023-12-15 06:50 | XR ---
EXAMINATION TYPE: XR shoulder complete LT DATE OF EXAM: 12/15/2023 COMPARISON: NONE HISTORY: Pain TECHNIQUE: Shoulder examined in 3 projections. FINDINGS: There is a left humeral prosthesis with glenoid component. No suspicious erosions are evident. No acu te fractures are evident. The acromio-clavicular junction is normal. No acute fractures or dislocations are evident in the remaining osseous structures. Postsurgical soft tissue changes are evident.. A follow up study can be performed 7-10 days from acute trauma for continued pain. MRI can be perfor med if soft tissue evaluation would be of benefit. IMPRESSION: 1. No acute osseous shoulder abnormality. Prosthesis appears intact. [facility], , 12/15/2023 6:48 AM
--- NOTE | 2023-12-15 06:51 | XR ---
EXAMINATION TYPE: XR chest 2V DATE OF EXAM: 12/15/2023 COMPARISON: 02/27/2021 INDICATION: Shoulder pain TECHNIQUE: Frontal and lateral views of the chest are obtained. FINDINGS: The heart size is normal. The pulmonary vasculature is normal. The lungs are clear. IMPRESSION: 1. No acute pulmonary process. [facility], Workstation: 3, 12/15/2023 6:49 AM
--- NOTE | 2023-12-15 08:17 | US ---
EXAMINATION TYPE: US venous doppler duplex UE LT DATE OF EXAM: 12/15/2023 COMPARISON: NONE CLINICAL INDICATION: Female, 68 years old with history of dvt; No hx of DVT. Patient does not take bl ood thinners. Patient had shoulder replaced on 12/10/2023. SIDE PERFORMED: Left arm Left Arm: No evidence of DVT. IMPRESSION: 1. Left upper extremity ultrasound negative for deep venous thrombosis. [facility], , 12/15/2023 8:14 AM
[2023-12-15 09:01] VITALS: BP 116/69; PULSE 90
[2023-12-15 09:25] VITALS: TEMP 98.3
== END 2023-12-15 09:25 | disposition home or self-care (01) ==
LOC: EC 02:40
CPT/HCPCS: 36415; 71046; 80053; 83605; 83735; 84100; 84484; 85025; 85379; 85610; 85730; 86140; 87040; 96361; 96374; 96375; 99284